=== PATIENT | female | born 1965 | race Caucasian/White ===

== ENCOUNTER 2020-06-05 08:34 | Outpatient (REF) | payer OTHER, SELFPAY ==
[2020-06-07 00:27] LABS: C. trachomatis RNA TMA NOT DETECTED (NOT DETECTED); N. gonorrhoeae RNA TMA NOT DETECTED (NOT DETECTED)
== END 2020-06-05 08:35 | disposition home or self-care (01) ==
LOC: HO.LAB 08:34
PROVIDERS: PCP Internal Medicine; Visit Provider Obstetrics & Gynecology
DX: Z01.419 Encounter for gynecological examination (general) (routine) without abnormal findings (principal); R10.2 Pelvic and perineal pain
CPT/HCPCS: 36415; 81003; 81025; 87491; 87591

== ENCOUNTER 2020-06-18 11:27 | Outpatient (REF) | payer OTHER, SELFPAY ==
--- NOTE | 2020-06-18 11:31 | US_ITS ---
EXAMINATION: PELVIC ULTRASOUND CLINICAL INFORMATION: Pain COMPARISON: Previous CT of the abdomen and pelvis August 2008 and pelvic ultrasound most recent August 2018 TECHNIQUE: Transabdominal and transvaginal pelvic ultrasound. Transvaginal exam was performed for better visualization of the uterus and ovaries. FINDINGS: The uterus is anteverted and measures 9.6 x 4.7 x 5.4 cm in dimension. There is a 1.7 x 2.1 x 1.7 cm hypoechoic area in the fundus of the uterus near the endometrium suggestive of a fibroid. This was not appreciated on previous exam. No other focal lesion is seen. Endometrial thickness is normal measuring 0.9 cm. There are small nabothian cysts in the cervix. The right ovary is slightly enlarged and measures 3.9 x 2.6 x 3 cm, volume 16 mL. There is a 3.2 x 1.9 x 2.3 cm simple right ovarian cyst. The left ovary is normal-appearing and measures 3 x 2.4 x 1.5 cm. There is a small amount of fluid in the pelvis. US/US transvaginal IMPRESSION: Question 1.7 x 2.1 x 1.7 cm fundal uterine fibroid near the endometrium. 3.2 x 1.9 x 2.3 cm left ovarian cyst.
--- NOTE | 2020-06-18 11:31 | US_ITS ---
EXAMINATION: PELVIC ULTRASOUND CLINICAL INFORMATION: Pain COMPARISON: Previous CT of the abdomen and pelvis August 2008 and pelvic ultrasound most recent August 2018 TECHNIQUE: Transabdominal and transvaginal pelvic ultrasound. Transvaginal exam was performed for better visualization of the uterus and ovaries. FINDINGS: The uterus is anteverted and measures 9.6 x 4.7 x 5.4 cm in dimension. There is a 1.7 x 2.1 x 1.7 cm hypoechoic area in the fundus of the uterus near the endometrium suggestive of a fibroid. This was not appreciated on previous exam. No other focal lesion is seen. Endometrial thickness is normal measuring 0.9 cm. There are small nabothian cysts in the cervix. The right ovary is slightly enlarged and measures 3.9 x 2.6 x 3 cm, volume 16 mL. There is a 3.2 x 1.9 x 2.3 cm simple right ovarian cyst. The left ovary is normal-appearing and measures 3 x 2.4 x 1.5 cm. There is a small amount of fluid in the pelvis. US/US pelvic complete IMPRESSION: Question 1.7 x 2.1 x 1.7 cm fundal uterine fibroid near the endometrium. 3.2 x 1.9 x 2.3 cm left ovarian cyst.
== END 2020-06-18 11:28 | disposition home or self-care (01) ==
LOC: HO.US 11:27
PROVIDERS: PCP Internal Medicine; Visit Provider Obstetrics & Gynecology
DX: R10.2 Pelvic and perineal pain (principal)
CPT/HCPCS: 76830; 76856

== ENCOUNTER → 2020-07-03 10:27 | Outpatient (BNVA) | payer OTHER, SELFPAY | PROVIDERS: Visit Provider Obstetrics & Gynecology ==

== ENCOUNTER 2020-10-16 12:48 | Outpatient (REF) | payer OTHER, SELFPAY ==
--- NOTE | ~2020-10-16 | MM_ITS ---
EXAMINATION: MM SCREENING DIGITAL BREAST TOMOSYNTHESIS, BILATERAL CLINICAL INFORMATION: Screening. Asymptomatic. The lifetime risk of breast cancer based on the Tyrer-Cuzick Model is 12%. COMPARISON: Mammography: 07/15/2018, 07/10/2017, 06/16/2015 TECHNIQUE: Digital breast tomosynthesis is performed in both the craniocaudal and mediolateral oblique views along with computer-aided detection (CAD). Synthesized 2D images are generated from the tomosynthesis. FINDINGS: There are scattered areas of fibroglandular density (ACR BI-RADS breast composition Category b). Parenchymal pattern is similar to prior studies. There is no developing density or interval mass or architectural abnormality. The axilla and skin contours are unremarkable. There are some fine calcifications posterior central 3:00 right breast, questionably increased. Patient will be recalled for additional imaging. MM/MM tomosynthesis screening BI IMPRESSION: 1. Right: Fine calcifications posterior central right breast. 2. Left: No mammographic evidence of malignancy. ASSESSMENT: BI-RADS 0: Incomplete - Need Additional Imaging Evaluation RECOMMENDATION: 1. Additional views of the right breast (magnification CC, magnification LM). 2. Radiology department staff will contact the patient for additional imaging. This patient's information was entered into a reminder system with a target due date for their next mammogram.
== END 2020-10-16 12:49 | disposition home or self-care (01) ==
LOC: HO.MAMMO 12:48
PROVIDERS: PCP Internal Medicine; Visit Provider Internal Medicine
DX: Z12.31 Encounter for screening mammogram for malignant neoplasm of breast (principal)
CPT/HCPCS: 77063; 77067

== ENCOUNTER 2020-10-19 09:03 | Outpatient (REF) | payer OTHER, SELFPAY ==
--- NOTE | ~2020-10-19 | MM_ITS ---
EXAMINATION: MM DIAGNOSTIC DIGITAL MAMMOGRAPHY, RIGHT CLINICAL INFORMATION: Recall from screening for question of new loosely grouped calcifications posterior medial right breast. COMPARISON: Mammography: 10/16/2020, 07/15/2018, 07/10/2017, 06/16/2015 TECHNIQUE: Digital mammography is performed in the following views: Magnification CC, magnification LM x2. FINDINGS: There are scattered areas of fibroglandular density (ACR BI-RADS breast composition Category b). Breast tissue composition borders on heterogeneously dense. The additional magnification views show a few random small round calcifications in the breasts without increased or grouped benign round prior exam. No significant changes. Results are discussed with the patient at time of visit. MM/MM added views RT IMPRESSION: Additional view shows no significant changes from prior exams. ASSESSMENT: BI-RADS 2: Benign RECOMMENDATION: Routine annual mammography screening. This patient's information was entered into a reminder system with a target due date for their next mammogram.
== END 2020-10-19 09:04 | disposition home or self-care (01) ==
LOC: HO.MAMMO 09:03
PROVIDERS: Visit Provider Internal Medicine
DX: R92.1 Mammographic calcification found on diagnostic imaging of breast (principal)
CPT/HCPCS: 77065

== ENCOUNTER 2021-01-15 08:38 | Outpatient (REF) | payer OTHER, SELFPAY ==
[2021-01-15 12:01] LABS: Alanine Aminotransferase 17 U/L (0-31); Albumin Level 4.8 g/dL (3.5-5.0); Alkaline Phosphatase 53 U/L (39-117); Anion Gap 14 (12-20); Aspartate Amino Transferase 18 U/L (5-31); Bilirubin Total 1.1 mg/dL (0.0-1.0); Blood Urea Nitrogen 13 mg/dL (9-16); Calcium 9.6 mg/dL (8.4-10.2); Carbon Dioxide 25 mmol/L (22-29); Chloride 106 mmol/L (96-108); Cholesterol 244 mg/dL; Estimated Glomerular Filt Rate > 60; Glucose Fasting 101 mg/dL (60-99); HDL Cholesterol 35 mg/dL; LDL Cholesterol Calculated 161 mg/dl; Potassium 4.5 mmol/L (3.3-5.1); Sodium 140 mmol/L (135-145); Total Protein 7.8 g/dL (6.5-8.0); Triglycerides 244 mg/dL
[2021-01-15 12:15] LABS: Vitamin D 25-OH Total 19.4 ng/mL (>30)
[2021-01-15 14:28] LABS: Estimated Average Glucose 114 mg/dL; Hemoglobin A1c % 5.6 %
== END 2021-01-15 08:39 | disposition home or self-care (01) ==
LOC: HO.HMGCLDS 08:38
PROVIDERS: PCP Internal Medicine; Visit Provider Internal Medicine
DX: R73.01 Impaired fasting glucose (principal); E78.5 Hyperlipidemia, unspecified; I10 Essential (primary) hypertension; Z78.0 Asymptomatic menopausal state
CPT/HCPCS: 36415; 80053; 80061; 82306; 83036

== ENCOUNTER 2021-06-10 09:58 | Outpatient (REF) | payer OTHER, SELFPAY ==
[2021-06-13 05:51] LABS: HPV mRNA E6/E7 rflx Not Detected (Not Detected)
== END 2021-06-10 09:59 | disposition home or self-care (01) ==
LOC: HO.LAB 09:58
PROVIDERS: PCP Internal Medicine; Visit Provider Obstetrics & Gynecology
DX: Z01.411 Encounter for gynecological examination (general) (routine) with abnormal findings (principal); Z11.51 Encounter for screening for human papillomavirus (HPV); N95.0 Postmenopausal bleeding
CPT/HCPCS: 87624; 88142; 99212

== ENCOUNTER 2021-06-27 14:06 | Outpatient (REF) | payer OTHER, SELFPAY ==
--- NOTE | ~2021-06-27 | US_ITS ---
EXAMINATION: US PELVIS CLINICAL INFORMATION: Postmenopausal bleeding. COMPARISON: Pelvic ultrasound on 06/18/[address] abdomen pelvis 08/21/2008. TECHNIQUE: Ultrasound of the pelvis is performed using both transabdominal and transvaginal transducers along with Doppler. Transvaginal imaging is performed due to inadequate visualization transabdominally. FINDINGS: Uterus: The uterus is anteverted and measures 9.1 x 4.2 x 5.3 cm. The double wall endometrial thickness is 0.5 mm. Trace fluid is present in the endometrial canal. The uterus is smooth in contour and has normal myometrial echogenicity. There is a small submucosal fibroid present at the fundus measuring 2.0 x 1.7 x 1.5 cm not significantly changed in size over the past year when it was measured at 1.7 x 2.1 x 1.7 cm. Adnexa: Both ovaries are visualized. There is normal color flow to the adnexa. There is no ovarian torsion. There is no pelvic ascites or fluid collection. Right ovary measures 1.7 x 1.2 x 2.0 cm for a volume of 2.1 mL which includes a dominant follicle. Previously seen right ovarian cysts appear to have resolved. There is a tubular structure in the right adnexa measuring 1.2 x 0.8 x 3.2 cm which could possibly represent a hydrosalpinx. Alternatively, this could represent one of the previously seen cysts which is collapsed and flattened. Left ovary measures 4.3 x 2.7 x 3.3 cm for a volume of 20.1 mL which includes a 2.8 x 2.0 x 2.7 cm cyst with some peripheral calcifications. US/US pelvic and transvaginal IMPRESSION: 2 cm submucosal fibroid at the fundus of the uterus. Resolved/resolving right ovarian cysts as described above.
== END 2021-06-27 14:07 | disposition home or self-care (01) ==
LOC: HO.US 14:06
PROVIDERS: PCP Internal Medicine; Visit Provider Obstetrics & Gynecology
DX: N95.0 Postmenopausal bleeding (principal)
CPT/HCPCS: 76830; 76856

== ENCOUNTER 2021-07-11 10:14 | Outpatient (REF) | payer OTHER, SELFPAY | END 2021-07-11 10:15 | disposition home or self-care (01) | LOC: HO.LAB 10:14 | PROVIDERS: PCP Internal Medicine; Visit Provider Obstetrics & Gynecology | DX: N95.0 Postmenopausal bleeding (principal); N83.209 Unspecified ovarian cyst, unspecified side; D21.9 Benign neoplasm of connective and other soft tissue, unspecified; I10 Essential (primary) hypertension; E78.5 Hyperlipidemia, unspecified; R73.01 Impaired fasting glucose; Z87.891 Personal history of nicotine dependence; Z98.51 Tubal ligation status; Z90.49 Acquired absence of other specified parts of digestive tract | CPT/HCPCS: 57454; 58100; 88305; 99212 ==

== ENCOUNTER → 2021-07-25 13:01 | Outpatient (BNVA) | payer OTHER, SELFPAY | PROVIDERS: PCP Internal Medicine; Visit Provider Obstetrics & Gynecology | DX: N95.0 Postmenopausal bleeding (principal) | CPT/HCPCS: 99212 ==

== ENCOUNTER 2021-07-31 | Outpatient (REF) | payer OTHER, SELFPAY ==
[2021-07-31 10:37] LABS: Blood Urea Nitrogen 15 mg/dL (9-16); Estimated Glomerular Filt Rate > 60
== END 2021-07-31 00:01 ==
LOC: HO.LAB
PROVIDERS: Visit Provider Obstetrics & Gynecology
DX: D21.9 Benign neoplasm of connective and other soft tissue, unspecified (principal)
CPT/HCPCS: 36415; 82565; 84520

== ENCOUNTER 2021-07-31 10:55 | Outpatient (REF) | payer OTHER, SELFPAY ==
--- NOTE | ~2021-07-31 | MR_ITS ---
EXAMINATION: MRI PELVIS WITH AND WITHOUT CONTRAST CLINICAL INFORMATION: Reason for Exam [id number] - Unspecified ovarian cyst, unspecified side COMPARISON: Pelvic ultrasound 06/27/2021 TECHNIQUE: Multiple routine MRI sequences through the pelvis were obtained before and after the uneventful administration of 10 mL of Gadavist gadolinium-based IV contrast. FINDINGS: UTERUS: Anteverted uterus has a normal configuration and measures 7.8 x 4.0 x 4.6 cm ([id number] x anterior-posterior x transverse). Endometrium is uniform and measures 0.2 cm in thickness. No junctional zone thickening. No focal uterine mass seen. CERVIX: Unremarkable. VAGINA: Unremarkable. OVARIES: The right ovary measures 1.8 x 2.2 x 0.9 cm. A 1.2 cm simple exophytic right ovarian cyst unchanged from prior previously 1.2 cm. The left ovary measures 2.2 x 1.1 x 3.0 cm. Left ovary is unremarkable, with interval resolution of the previously seen 2.8 cm cyst. KIDNEYS: Two normally positioned kidneys are seen. No hydronephrosis. BLADDER: Unremarkable. PELVIC FREE FLUID: No free fluid or ascites. LYMPH NODES: No pathologically enlarged lymph nodes. OSSEOUS STRUCTURES: No acute or suspicious osseous abnormalities. MR/MR pelvis wo/w con IMPRESSION: Right ovary is remarkable for a 1.2 cm exophytic simple cyst. If patient is premenopausal this is consistent with a benign cyst for which no follow-up imaging is recommended. If patient is postmenopausal this is an almost certainly benign cyst for which no follow-up imaging is recommended. Interval resolution of previously seen 2.8 cm left ovarian cyst.
== END 2021-07-31 10:56 | disposition home or self-care (01) ==
LOC: HO.MRI 10:55
PROVIDERS: Visit Provider Obstetrics & Gynecology
DX: N83.209 Unspecified ovarian cyst, unspecified side (principal)
CPT/HCPCS: 72197; A9585

== ENCOUNTER → 2021-08-14 14:58 | Outpatient (BNVA) | payer OTHER, SELFPAY | PROVIDERS: PCP Internal Medicine; Visit Provider Obstetrics & Gynecology | DX: N83.209 Unspecified ovarian cyst, unspecified side (principal) | CPT/HCPCS: 99212 ==

== ENCOUNTER 2021-10-22 12:20 | Outpatient (REF) | payer OTHER, SELFPAY ==
--- NOTE | ~2021-10-22 | MM_ITS ---
EXAMINATION: MM SCREENING DIGITAL BREAST TOMOSYNTHESIS, BILATERAL CLINICAL INFORMATION: Screening. Asymptomatic. The lifetime risk of breast cancer based on the Tyrer-Cuzick Model is 12.3%. COMPARISON: Mammography: October 19, 2020 and studies dating back to July 26, 2011 TECHNIQUE: Digital breast tomosynthesis is performed in both the craniocaudal and mediolateral oblique views along with computer-aided detection (CAD). Synthesized 2D images are generated from the tomosynthesis. FINDINGS: The breasts are extremely dense, which lowers the sensitivity of mammography (ACR BI-RADS breast composition Category d). There are no significant masses, abnormal calcifications, or other abnormalities. MM/MM tomosynthesis screening BI IMPRESSION: There are no significant changes from prior study. ASSESSMENT: BI-RADS 1: Negative RECOMMENDATION: Routine annual mammography screening. This patient's information was entered into a reminder system with a target due date for their next mammogram.
== END 2021-10-22 12:21 | disposition home or self-care (01) ==
LOC: HO.MAMMO 12:20
PROVIDERS: PCP Internal Medicine; Visit Provider Internal Medicine
DX: Z12.31 Encounter for screening mammogram for malignant neoplasm of breast (principal)
CPT/HCPCS: 77063; 77067

== ENCOUNTER 2022-04-24 09:43 | Outpatient (REF) | payer OTHER, SELFPAY ==
--- NOTE | ~2022-04-24 | XR_ITS ---
EXAMINATION: XR CERVICAL SPINE CLINICAL INFORMATION: Cervicalgia COMPARISON: None TECHNIQUE: 5 views of the cervical spine were obtained. FINDINGS: The vertebral alignment is normal. No intrinsic bony abnormality. The disc heights and neural foramina are well maintained. The posterior elements are intact. Tiny endplate osteophytes at C6-C7. The atlantoaxial joint is intact. The dens is intact. No fracture or subluxation. The surrounding prevertebral soft tissues are unremarkable. The lung apices are clear. XR/XR cervical spine 5V IMPRESSION: Minimal degenerative change at the C6-C7 level.
== END 2022-04-24 09:44 | disposition home or self-care (01) ==
LOC: HO.HMGCX 09:43
PROVIDERS: PCP Internal Medicine; Visit Provider Internal Medicine
DX: M54.2 Cervicalgia (principal); R20.0 Anesthesia of skin; R20.2 Paresthesia of skin
CPT/HCPCS: 72050

== ENCOUNTER 2022-07-01 09:07 | Outpatient (REF) | payer OTHER, SELFPAY ==
[2022-07-01 11:58] LABS: Alanine Aminotransferase 18 U/L (0-31); Anion Gap 13 (12-20); Aspartate Amino Transferase 15 U/L (5-31); Blood Urea Nitrogen 15 mg/dL (9-16); Calcium 9.6 mg/dL (8.4-10.2); Carbon Dioxide 26 mmol/L (22-29); Chloride 106 mmol/L (96-108); Cholesterol 245 mg/dL; Estimated Glomerular Filt Rate > 60; Glucose Fasting 126 mg/dL (60-99); HDL Cholesterol 37 mg/dL; LDL Cholesterol Calculated 176 mg/dl; Potassium 4.2 mmol/L (3.3-5.1); Sodium 141 mmol/L (135-145); Triglycerides 160 mg/dL
[2022-07-01 12:16] LABS: Vitamin D 25-OH Total 20.2 ng/mL (>30)
== END 2022-07-01 09:08 | disposition home or self-care (01) ==
LOC: HO.HMGCLDS 09:07
PROVIDERS: PCP Internal Medicine; Visit Provider Internal Medicine
DX: I10 Essential (primary) hypertension (principal); R73.01 Impaired fasting glucose; E78.5 Hyperlipidemia, unspecified; R20.2 Paresthesia of skin; R20.0 Anesthesia of skin; M54.2 Cervicalgia
CPT/HCPCS: 36415; 80048; 80061; 82306; 84450; 84460

== ENCOUNTER 2022-10-15 06:29 | Outpatient (REF) | payer OTHER, SELFPAY ==
[2022-10-15 12:04] LABS: Alanine Aminotransferase 17 U/L (0-31); Anion Gap 14 (12-20); Aspartate Amino Transferase 18 U/L (5-31); Blood Urea Nitrogen 20 mg/dL (9-16); Calcium 10.1 mg/dL (8.4-10.2); Carbon Dioxide 26 mmol/L (22-29); Chloride 105 mmol/L (96-108); Cholesterol 221 mg/dL; Estimated Glomerular Filt Rate 56; Glucose Fasting 115 mg/dL (60-99); HDL Cholesterol 31 mg/dL; LDL Cholesterol Calculated 131 mg/dl; Potassium 4.1 mmol/L (3.3-5.1); Sodium 141 mmol/L (135-145); Triglycerides 299 mg/dL; Vitamin D 25-OH Total 42.9 ng/mL (>30)
[2022-10-15 12:05] LABS: Estimated Average Glucose 120 mg/dL; Hemoglobin A1c % 5.8 %
== END 2022-10-15 06:30 | disposition home or self-care (01) ==
LOC: HO.HMGCLDS 06:29
PROVIDERS: PCP Internal Medicine; Visit Provider Internal Medicine
DX: E78.5 Hyperlipidemia, unspecified (principal); I10 Essential (primary) hypertension; R73.01 Impaired fasting glucose
CPT/HCPCS: 36415; 80048; 80061; 82306; 83036; 84450; 84460

== ENCOUNTER 2022-10-16 13:13 | Outpatient (AMB) | payer OTHER, SELFPAY ==
--- NOTE | 2022-10-16 14:23 | A.OFFPC_ITS ---
<Statement entered by Bridgette Larson MD - 06/19/25 00:12> This note has been administratively?closed. Vital Signs 10/16/22 14:39 Height 5 ft 4 in Weight 180 lb BMI 30.9 BP 118/88 Blood Pressure Location Rt brachial Position Sitting Pulse 72 Pulse Source Pulse Oximeter Pulse Oximetry (%) 98 Oxygen Delivery Method Room Air Intake Visit Reasons: 6 months F/U lipids, htn and depression/anxiety Intake Note: Pt is here today for her 6 mo. f/u lipids, HTN, depression/anxiety Allergies No Known Allergies Allergy (Verified 03/23/25 16:26) Medication List - Last Reconciled 10/16/22 by Bridgette Larson MD amlodipine 2.5 mg PO DAILY buspirone 5 mg PO BID cholecalciferol (vitamin D3) 50 mcg PO DAILY lisinopril-hydrochlorothiazide 10-12.5 mg 1 tab PO DAILY Tobacco use date assessed: 10/16/22 HPI 6 months F/U lipids, htn and depression/anxiety HPI Details 57-year-old lady here today for follow-u p on her lipids, hypertension depression anxiety. Has been compliant with taking her medications. Blood pressure today is within normal limits. Fasting glucose mildly elevated but 20 hemoglobin A1c within normal limits at 5.8%, liver enzymes, lipids showed elevated triglycerides with mildly elevated LDL cholesterol and normal vitamin-D level. Laboratory Tests 10/15/22 10/15/22 06:49 06:49 Sodium 141 Potassium 4.1 Chloride 105 Carbon Dioxide 26 Anion Gap 14 BUN 20 H Creatinine 1.02 Estimated GFR 56 Fasting Glucose 115 H Estimat Average Gl ucose 120 Hemoglobin A1c % 5.8 Calcium 10.1 AST 18 ALT 17 Triglycerides 299 Cholesterol 221 LDL Cholesterol, C alc 131 HDL Cholesterol 31 25-OH Vitamin D To nazario 42.9 PFSH Medical History (Updated 04/01/25 @ 23:51 by Bridgette Larson MD) Gout Mixed dyslipidemia Postmenopausal bleeding History of COVID-19 Esophagitis determined by endoscopy Essential hypertension Anxiety and depression Numbness and tingling in left hand Cervicalgia COVID-19 virus infection Hypertension, uncontrolled Impaired fasting glucose Dyslipidemia Surgical History Hx of colonoscopy S/P endometrial ablation Hx of cholecystectomy History of tubal ligation Family History Father Diabetes mellitus HTN (hypertension) Cerebrovascular disease Stroke Mother HTN (hypertension) Depression Mental health disorder Sister Mental health disorder Social History Household Members: Significant Other and Children Housing: House Alcohol intake: current Alcohol intake frequency: a few times a week Comment: socially Patient Tobacco Use Status: Former Tobacco user Years Smoked: 3 yrs e-Cigarette/Vaping Use: Never Used Second Hand Smoke Exposure: No service: No Current occupational status: employed 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 1. Little interest or pleasure in doing things: nearly every day 2. Feeling down, depressed, or hopeless: nearly every day 4. Feeling tired or having little energy: more than half the days 5. Poor appetite or overeating: several days 6. Feeling bad about yourself - or that you are a failure or have let yourself or your family down: nearly every day 7. Trouble concentrating on things, such as reading the newspaper or watching television: nearly every day 8. Moving or speaking so slowly that other people could have noticed. Or the opposite - being so fidgety or restless that you have been moving around a lot more than usual: more than half the days 9. Thoughts that you would be better off or of hurting yourself in some way: not at all Depression Screening Interpretation: Positive Source: Developed by Drs. Kei Jackson, Lizette Read, Michael Grande and colleagues, with an educational aura from [employer]. Thrive Questionnaire Date Thrive assessed: 10/16/22 AUDIT C Alcohol Use Questionnaire (AUDIT-C) 1. How often do you have a drink containing alcohol?: Monthly or less 2. How many drinks containing alcohol do you have on a typical day when you are drinking?: 1 or 2 3. How often do you have six or more drinks on one occasion?: Never Total Score: 1 GRZEGORZ-7 AMB Questionnaire GRZEGORZ-7 Date GRZEGORZ - 7 assessed: 10/16/22 Feeling nervous, anxious, or on edge: 3 = Nearly every day Not being able to stop or control worryin = Nearly every day Worrying too much about different things: 3 = Nearly every day Trouble relaxin = Nearly every day Being so restless that it is hard to sit still: 2 = More than half the days Becoming easily annoyed or irritable: 1 = Several days Feeling afraid as if something awful might happen: 2 = More than half the days Total GRZEGORZ-7 score (0-4 normal; 5-9 mild; 10-14 moderate; 15-21 severe): 17 Source: Developed by Drs. Kei Jackson, Lizette Read, Michael Grande and colleagues, with an educational aura from [employer]. Physical exam (Primary Care) Vital Signs: Last Vital Signs Pulse 72 10/16/22 14:39 BP 118/88 10/16/22 14:39 Pulse Ox 98 10/16/22 14:39 Oxygen Delivery Method Room Air 10/16/22 14:39 BMI result Body Mass Index 30.9 Tobacco/Smoking Status: Tobacco use Status Tobacco use date assessed 10/16/22 10/16/22 14:38 Patient Tobacco Use Status Former Tobacco user 10/16/22 14:24 e-Cigarette/Vaping Use Never Used 10/16/22 14:24 Depression Screening Interpretation: Positive Thrive Assessment: Date of Thrive Assessment Date Thrive assessed 10/16/22 10/16/22 14:38 Coding Level of Care Code Admin Sign Off/No Billing Diagnoses Essential hypertension I10 Anxiety and depression F41.9; F32.A Impaired fasting glucose R73.01 Dyslipidemia E78.5
[2022-10-16 14:39] VITALS: BP 118/88; PULSE 72; O2SAT 98; BMI 30.9
== END 2022-10-16 15:32 | disposition home or self-care (01) ==
PROVIDERS: PCP Internal Medicine; Visit Provider Internal Medicine
DX: I10 Essential (primary) hypertension (principal); F41.9 Anxiety disorder, unspecified; F32.A Depression, unspecified; R73.01 Impaired fasting glucose; E78.5 Hyperlipidemia, unspecified
CPT/HCPCS: 99499

== ENCOUNTER 2022-10-24 10:54 | Outpatient (REF) | payer OTHER, SELFPAY ==
--- NOTE | ~2022-10-24 | MM_ITS ---
EXAMINATION: MM SCREENING DIGITAL BREAST TOMOSYNTHESIS, BILATERAL CLINICAL INFORMATION: Screening. Asymptomatic. The lifetime risk of breast cancer based on the Tyrer-Cuzick Model is 13%. COMPARISON: Mammography: 10/22/2021, 10/19/2020, 11/04/2020, 07/15/2018 TECHNIQUE: Digital breast tomosynthesis is performed in both the craniocaudal and mediolateral oblique views along with computer-aided detection (CAD). Synthesized 2D images are generated from the tomosynthesis. FINDINGS: The breasts are heterogeneously dense, which may obscure small masses (ACR BI-RADS breast composition Category c). There is no developing density or architectural abnormality or significant mass. Scattered bilateral punctate calcifications are again noted. No abnormal calcifications. The axilla and skin contours are unremarkable. No significant changes from prior studies. MM/MM tomosynthesis screening BI IMPRESSION: No mammographic evidence of malignancy. ASSESSMENT: BI-RADS 2: Benign RECOMMENDATION: Routine annual mammography screening. This patient's information was entered into a reminder system with a target due date for their next mammogram.
== END 2022-10-24 10:55 | disposition home or self-care (01) ==
LOC: HO.MAMMO 10:54
PROVIDERS: PCP Internal Medicine; Visit Provider Internal Medicine
DX: Z12.31 Encounter for screening mammogram for malignant neoplasm of breast (principal)
CPT/HCPCS: 77063; 77067

== ENCOUNTER 2022-11-07 13:00 | Outpatient (RCR) | payer MEDICAID, OTHER, SELFPAY ==
--- NOTE | 2022-10-08 12:39 | MHC.PT.EP ---
[facility] [place] Office [place] Office [place] Office [address] Norma Gabriel [address] [phone] F: [phone] F: [phone] F: [phone] F: [phone] Physical Therapy Plan of Care Date of Evaluation: Date of Surgery: Diagnosis: This is a 57 yo female presenting to skilled PT with a script for pain in L shoulder. Assessment: This is a 57 yo female presenting to skilled PT with a script for pain in L shoulder. Patient has been having ongoing shoulder pain for the past 3 few months progressively getting worse, insidious onset. She went to urgent care on 09/12 with a clicking sensation in the shoulder joint with, restriction of mobility due to pain and some numbness and tingling to the 5th digit of her hand when she wakes in the AM (was dx with arthritis). Today at eval patient reporting discomfort at the anterior shoulder worse with movement, sleeping (feels weak and like it will dislocate), numbness into lower arm and into 5th digit. She states that she has always had L upper trap pain as well. Pain is constant, worse some days and better others. Assessment reveals pain that ranges up to a 7/10. Patient demos decreased cervical and shoulder ROM, strength of shoulder and scapular muscles, they are TTP at UT and anterior shoulder with decreased sensation in lower arm, s/s consistent with cervical derangement vs shoulder arthritis as in script. Based on functional limitations, impaired QOL and pain tolerance patient is a good candidate for skilled PT 2x/wk for 4wks. Frequency and Duration: The patient will be seen 2x/wk for 4wks Short Term Goals: I in HEP Report centralized symptoms for at least 2 weeks Demo good understanding of cervical and shoulder neutral posture without cues from PT in 2 weeks Assisted Goals: Demo WFL shoulder and cervical AROM in 4wks Demo at least 1 grade improvement with shoulder MMT in 4wks Improve SPADI by at least 25% in 4wks Report 75% improvement in overall QOL In 4wks ------- Treatment Plan: Modalities to reduce pain, spasms and effusion. Manual therapy to restore motion and function. Therapeutic exercise to improve strength and flexibility. Neuromuscular re-education for posture and balance. Therapeutic activities to return to functional activities of daily living. Electronically signed by: Sabrina Hernández PT Please sign and return to therapist. Thank you for your referral.
--- NOTE | 2022-11-19 14:12 | MHC.PT.DC ---
[facility] [place] Office [place] Office [place] Office [address] Norma Gabriel [address] [phone] F: [phone] F: [phone] F: [phone] F: [phone] Physical Therapy Discharge Report Diagnosis: This is a 57 yo female presenting to skilled PT with a script for pain in L shoulder. Date of Surgery: Date of Evaluation: 10/08/22 Date of Discharge: 11/19/22 Treatments to Date: 8 Cancellations to Date: 0 No Shows to Date: 0 Discharge Status: Achieved Goals Improved Function Independent with HEP Visit Non-compliance Discharge Summary: Patient came to 8 visits of PT and then no showed to the last 3 scheduled appointments. She was improving in terms of ROM, strength and pain. She was also more aware of her posture and the exercises that helped to centralize her symptoms. Due to visit non-compliance however patient was DC'd to HEP. Electronically signed by: Sabrina Hernández, PT Please sign and return to therapist. Thank you for your referral.
== END 2022-11-19 14:12 | disposition home or self-care (01) ==
LOC: HO.PTCHIC 13:00
PROVIDERS: PCP Internal Medicine; Visit Provider Emergency Medicine
DX: M25.512 Pain in left shoulder (principal)
CPT/HCPCS: 97012; 97110; 97140; 97162

== ENCOUNTER 2022-12-16 09:15 | Outpatient (AMB) | payer OTHER, SELFPAY ==
--- NOTE | 2022-12-16 09:17 | MHC.OFFVIS ---
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 No complaints. Last Pap/HPV was negative in 06/08 Last Mammogram was BI-RADS 2 in 11/04 Last Colonoscopy was in 03/05, the recommendation was to repeat in 10 years [facility] Medical History Anxiety and depression Cervicalgia COVID-19 virus infection Dyslipidemia Essential hypertension Hypertension, uncontrolled Impaired fasting glucose Left shoulder pain Numbness and tingling in left hand Surgical History History of tubal ligation Hx of cholecystectomy S/P endometrial ablation Family History Father Diabetes mellitus HTN (hypertension) Cerebrovascular disease Stroke Mother HTN (hypertension) Depression Mental health disorder Sister Mental health disorder Social History Household Members: Significant Other and Children Housing: House Alcohol intake: current Alcohol intake frequency: a few times a week Patient Tobacco Use Status: Former Tobacco user Years Smoked: 3 yrs e-Cigarette/Vaping Use: Never Used Second Hand Smoke Exposure: No service: No Current occupational status: employed 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 Sexually active: Yes Sexual orientation: Straight/Heterosexual Gender identity: Female Cognitive needs: No Hearing needs: No Vision needs: Yes Female Reproductive History Menstrual Age of Menarche: 13 Menopause type: natural Total pregnancies: 5 Full term: 3 Number of Living Children: 3 Ab spontaneous: 2 Date of last pap smear: 06/11/21 Date of Mammogram: 10/24/22 Review of Systems Const All systems reviewed & are unremarkable except as noted in HPI and below Card Reports as per HPI Resp Reports as per HPI GI Reports as per HPI and Reports no additional complaints Reports as per HPI Physical Exam Vital Signs: BMI result Body Mass Index 30.0 Const General: cooperative, healthy appearing and comfortable Chest Chest palpation & inspection: normal inspection of the chest and normal palpation of entire chest wall Breast/axilla inspection: normal inspection of the breasts and normal inspection of the axillae Breast/axilla palpation: normal palpation of the breasts, normal palpation of the axillae and no axillary lymphadenopathy Resp Effort & Inspection: normal respiratory effort Auscultation: clear to auscultation bilaterally Percussion: percussion normal Cardio Palpation: normal PMI Rate: regular rate Rhythm: regular rhythm Heart sounds: no murmurs and no rubs Peripheral pulses: Peripheral pulses 2+ throughout GI Inspection: Yes normal to inspection Palpation (GI): Soft to palpation, nontender, no guarding, not rigid and No hepatosplenomegaly present Percussion: Yes normal to percussion Auscultation: normal bowel sounds Rectal Exam - Female: deferred General: Yes bladder normal to palpation External Female Exam: No lesion Speculum Exam - Vagina: normal appearance of the vagina, normal palpation, normal vaginal discharge and not erythematous Speculum Exam - Cervix: normal appearance of the cervix and normal palpation Bimanual exam- vagina & uterus: normal bimanual exam, normal palpation, uterine size normal, bladder normal to palpation, consistency normal and normal palpation Bimanual Exam- Adnexa, other: normal adnexae, no masses and no tenderness Assessment & Plan Assessment & Plan (1) Well woman exam: Code(s): Z01.419 - Encounter for gynecological examination (general) (routine) without abnormal findings Plan: Co testing not indicated this year. Counseled the patient about the recommended dietary allowance of 1200 mg of Calcium & 600 IU of vitamin D. Instructions given to the patient to schedule her next screen Mammogram in 11/08 , the patient is up-to-date with her screening colonoscopy . The patient was instructed to perform monthly self-breast exams and schedule annual exam in a year; all questions answered and the patient verbalized understanding. Coding Level of Care Code Est Pt Prev Care 40-64y(80853) Diagnoses Well woman exam Z01.419
[2022-12-16 09:21] VITALS: BP 122/80
== END 2022-12-16 09:41 | disposition home or self-care (01) ==
LOC: HO.HWS 09:15
PROVIDERS: PCP Internal Medicine; Visit Provider Obstetrics & Gynecology
DX: Z01.419 Encounter for gynecological examination (general) (routine) without abnormal findings (principal)
CPT/HCPCS: 99396

== ENCOUNTER → 2022-12-16 09:15 | Outpatient (BNVA) | payer OTHER, SELFPAY | PROVIDERS: PCP Internal Medicine; Visit Provider Obstetrics & Gynecology ==

== ENCOUNTER 2023-01-20 08:30 | Outpatient (REF) | payer OTHER, SELFPAY ==
[2023-01-20 12:27] LABS: Alanine Aminotransferase 13 U/L (0-31); Anion Gap 12 (12-20); Aspartate Amino Transferase 14 U/L (5-31); Blood Urea Nitrogen 18 mg/dL (9-16); Calcium 10.3 mg/dL (8.4-10.2); Carbon Dioxide 26 mmol/L (22-29); Chloride 105 mmol/L (96-108); Cholesterol 228 mg/dL (<200); Estimated Glomerular Filt Rate 58; Glucose Fasting 112 mg/dL (60-99); HDL Cholesterol 37 mg/dL (>40); LDL Cholesterol Calculated 159 mg/dL (<100); Potassium 3.9 mmol/L (3.3-5.1); Sodium 139 mmol/L (135-145); Triglycerides 163 mg/dL (<150)
[2023-01-20 12:32] LABS: Estimated Average Glucose 120 mg/dL; Hemoglobin A1c % 5.8 % (<6.0)
== END 2023-01-20 08:31 | disposition home or self-care (01) ==
LOC: HO.HMGCLDS 08:30
PROVIDERS: PCP Internal Medicine; Visit Provider Internal Medicine
DX: E78.5 Hyperlipidemia, unspecified (principal); F32.A Depression, unspecified; F41.9 Anxiety disorder, unspecified; R73.01 Impaired fasting glucose; I10 Essential (primary) hypertension
CPT/HCPCS: 36415; 80048; 80061; 83036; 84450; 84460

== ENCOUNTER 2023-01-21 10:39 | Outpatient (AMB) | payer OTHER, SELFPAY ==
[2023-01-21 10:40] VITALS: BP 132/92; PULSE 64; O2SAT 99; BMI 29.5
--- NOTE | 2023-01-21 10:40 | MHC.PC.OV ---
Vital Signs 01/21/23 10:40 Height 5 ft 4 in Weight 172 lb BMI 29.5 BP 132/92 H Blood Pressure Location Lt brachial Position Sitting Pulse 64 Pulse Source Pulse Oximeter Pulse Oximetry (%) 99 Oxygen Delivery Method Room Air Intake Visit Reasons: 3m follow up depression/anxiety Intake Note: Pt is here today for her 3 mo. f/u depression/anxiety Allergies No Known Allergies Allergy (Verified 02/16/23 03:09) Medication List - Last Reconciled 01/21/23 by Bridgette Larson MD amlodipine 2.5 mg PO DAILY buspirone 7.5 mg PO TID cholecalciferol (vitamin D3) 50 mcg PO DAILY lisinopril-hydrochlorothiazide 20-12.5 mg 1 tab PO DAILY Tobacco use date assessed: 01/21/23 Dental Screening Dental Screen Date: 01/21/23 Did you have a dental visit in the last 12 months?: No Was dental information given to patient?: Patient has dentist HPI 3m follow up depression/anxiety HPI Details 57-year-old lady here today for follow-up on her anxiety/ depression, currently on buspirone for 7.5 mg taken 1 tablet 3 times a day. Patient states that she has been feeling better, with anxiety better controlled on present medication. Denies having had any adverse effects from medication . She is also here today for follow-up on her hypertension, dyslipidemia and prediabetes. Has been compliant with taking her medications and tries to follow recommended diet but admits to not getting any regular exercise. [facility] Medical History Left shoulder pain Essential hypertension Anxiety and depression Numbness and tingling in left hand Cervicalgia COVID-19 virus infection Hypertension, uncontrolled Impaired fasting glucose Dyslipidemia Surgical History S/P endometrial ablation Hx of cholecystectomy History of tubal ligation Family History Father Diabetes mellitus HTN (hypertension) Cerebrovascular disease Stroke Mother HTN (hypertension) Depression Mental health disorder Sister Mental health disorder Social History Household Members: Significant Other and Children Housing: House Alcohol intake: current Alcohol intake frequency: a few times a week Patient Tobacco Use Status: Former Tobacco user Years Smoked: 3 yrs e-Cigarette/Vaping Use: Never Used Second Hand Smoke Exposure: No service: No Current occupational status: employed 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 1. Little interest or pleasure in doing things: several days 2. Feeling down, depressed, or hopeless: several days 3. Trouble falling or staying asleep, or sleeping too much: several days 4. Feeling tired or having little energy: several days 5. Poor appetite or overeating: not at all 6. Feeling bad about yourself - or that you are a failure or have let yourself or your family down: several days 7. Trouble concentrating on things, such as reading the newspaper or watching television: several days 8. Moving or speaking so slowly that other people could have noticed. Or the opposite - being so fidgety or restless that you have been moving around a lot more than usual: not at all 9. Thoughts that you would be better off or of hurting yourself in some way: not at all Total score: 6 Depression Screening Interpretation: Positive Depression Screening Follow-up: Existing condition and In treatment 51419 - PHQ-9 Billing: Yes Source: Developed by Drs. Kei Jackson, Lizette Read, Michael Grande and colleagues, with an educational aura from [employer]. Thrive Questionnaire Date Thrive assessed: 10/16/22 I am a: Patient What is your living situation today?: I choose not to answer this question Within the past 12 months, did the food you bought not last and you didn't have the money to get more?: I choose not to answer this question Within the past 12 months, did you worry whether your food would run out before you got money to buy more?: I choose not to answer this question GRZEGORZ-7 AMB Questionnaire GRZEGORZ-7 Date GRZEGORZ - 7 assessed: 01/21/23 Feeling nervous, anxious, or on edge: 1 = Several days Not being able to stop or control worryin = Several days Worrying too much about different things: 1 = Several days Trouble relaxin = Several days Being so restless that it is hard to sit still: 0 = Not at all Becoming easily annoyed or irritable: 1 = Several days Feeling afraid as if something awful might happen: 0 = Not at all Total GRZEGORZ-7 score (0-4 normal; 5-9 mild; 10-14 moderate; 15-21 severe): 5 Source: Developed by Drs. Kei Jackson, Lizette Read, Michael Grande and colleagues, with an educational aura from [employer]. GRZEGORZ-7 Assessment Billing GRZEGORZ-7 Assessment Tool: GRZEGORZ-7 Assessment 87344 Review of Systems Const Reports no additional complaints ENT Reports no additional complaints and Reports Normal hearing present Card Denies chest pain, Denies diaphoresis, Denies rapid heart rate, Denies irregular heart rhythm, Denies lightheadedness and Denies dyspnea Resp Denies chest congestion, Denies cough, Denies dyspnea and Denies wheezing GI Reports no additional complaints Reports no additional complaints Musc Reports as per HPI Neuro Reports no additional complaints, Reports Normal hearing present and Denies Sensory deficit (Neuro) Psych Reports as per HPI Aller/Immun Denies wheezing Physical exam (Primary Care) Vital Signs: Last Vital Signs Pulse 64 01/21/23 10:40 BP 132/92 H 01/21/23 10:40 Pulse Ox 99 01/21/23 10:40 Oxygen Delivery Method Room Air 01/21/23 10:40 BMI result Body Mass Index 29.5 Tobacco/Smoking Status: Tobacco use Status Tobacco use date assessed 01/21/23 01/21/23 10:43 Patient Tobacco Use Status Former Tobacco user 01/21/23 10:43 e-Cigarette/Vaping Use Never Used 01/21/23 10:43 PHQ-9: PHQ-9 Score PHQ-9: Total score 6 01/21/23 10:52 Depression Screening Interpretation: Positive Depression Screening Follow-up: Existing condition and In treatment Thrive Assessment: Date of Thrive Assessment Date Thrive assessed 10/16/22 01/21/23 10:43 Const General: cooperative, no acute distress and alert Nutritional Appearance: overweight Orientation/consciousness: patient oriented x3 Limitations: No altered mental status HENMT Head: Yes normal to inspection, Yes normocephalic and Yes atraumatic Ears: hearing grossly normal bilaterally, external ears normal, TM's normal bilaterally and EAC's normal General nose exam: Normal external nose present, Normal nasal mucous membranes and turbinates present and No nasal discharge present Face and sinus: Yes normal facial exam and Yes face symmetric Mouth: Normal oral and palatal mucosa present, oropharynx normal and moist mucous membranes Eyes General: appearance normal, both eyes and all related structures Sclerae: sclerae normal Pupils: Equal, round and reactive pupils present EOM: EOMs intact bilaterally Neck Neck: Yes full ROM and Yes no lymphadenopathy Thyroid: Thyroid normal Carotids: normal carotid upstroke Lymphatic: no lymphadenopathy noted Resp Effort & Inspection: normal respiratory effort and able to speak in complete sentences Auscultation: clear to auscultation bilaterally Cardio Rate: regular rate Rhythm: regular rhythm Heart sounds: S1 normal heart sound present and S2 normal heart sound present GI Inspection: Yes normal to inspection Palpation (GI): Soft to palpation Auscultation: normal bowel sounds Neuro General: patient oriented x3, gait normal, moves all extremities, no focal motor deficits and CN's II-XI intact bilaterally Cranial nerves: Yes Equal, round and reactive pupils present and Yes Normal hearing present Cognition (Neuro): normal cognition Gait exam (Neuro): Normal gait present Motor exam (neuro): 5/5 motor strength present throughout Sensory Exam: No Sensory deficit (Neuro) Extrem General: Yes normal to inspection, Yes full ROM, Yes no pedal edema and Yes normal gait Psych Appearance: grossly normal and well kempt Mental Status: mental status grossly normal Speech and movement: Normal speech and movement present Affect: normal affect Thought process: Normal thought process present Assessment and Plan Assessment & Plan (1) Essential hypertension: Code(s): I10 - Essential (primary) hypertension Plan: Blood pressure at goal of less than 130/80. Continue with current medication. Reinforced importance of following a low sodium diet, getting regular exercise, and lowering stress levels. (2) Anxiety and depression: Code(s): F41.9 - Anxiety disorder, unspecified; F32.A - Depression, unspecified Plan: Improved, will continue on current dose of buspirone 7.5 mg 1 tablet taken 3 times a day (3) Dyslipidemia: Code(s): E78.5 - Hyperlipidemia, unspecified Plan: Fasting lipid panel ordered continue with adhering to a low-cholesterol diet and getting regular exercise. (4) Impaired fasting glucose: Code(s): R73.01 - Impaired fasting glucose Plan: Hemoglobin A1c and basic metabolic panel ordered, Your fasting blood sugars elevated were above 100 mg/dL. Impaired glucose metabolism O2 at risk for developing diabetes mellitus type 2, as well as heart attack and stroke later on. Lifestyle changes at just weight loss, healthy eating habits, and regular exercise are important, and can prevent the progression to diabetes Orders: Orders Hemoglobin A1c 05/18/23 I10 - Essential (primary) hypertension, F41.9 - Anxiety disorder, unspecified, F32.A - Depression, unspecified, R73.01 - Impaired fasting glucose, E78.5 - Hyperlipidemia, unspecified Aspartate Amino Transferase 05/18/23 I10 - Essential (primary) hypertension, F41.9 - Anxiety disorder, unspecified, F32.A - Depression, unspecified, R73.01 - Impaired fasting glucose, E78.5 - Hyperlipidemia, unspecified Lipid Panel 05/18/23 I10 - Essential (primary) hypertension, F41.9 - Anxiety disorder, unspecified, F32.A - Depression, unspecified, R73.01 - Impaired fasting glucose, E78.5 - Hyperlipidemia, unspecified Alanine Aminotransferase 05/18/23 I10 - Essential (primary) hypertension, F41.9 - Anxiety disorder, unspecified, F32.A - Depression, unspecified, R73.01 - Impaired fasting glucose, E78.5 - Hyperlipidemia, unspecified Basic Metabolic Panel Fasting 05/18/23 I10 - Essential (primary) hypertension, F41.9 - Anxiety disorder, unspecified, F32.A - Depression, unspecified, R73.01 - Impaired fasting glucose, E78.5 - Hyperlipidemia, unspecified Vitamin D 25-OH Total 05/18/23 I10 - Essential (primary) hypertension, F41.9 - Anxiety disorder, unspecified, F32.A - Depression, unspecified, R73.01 - Impaired fasting glucose, E78.5 - Hyperlipidemia, unspecified Coding Level of Care Code Est Pt Level 4 (52778) Diagnoses Essential hypertension I10 Anxiety and depression F41.9; F32.A Dyslipidemia E78.5 Impaired fasting glucose R73.01 Additional Codes GRZEGORZ-7 Assessment Billing - GRZEGORZ-7 Assessment Tool: GRZEGORZ-7 Assessment 44538 ([id number])
== END 2023-01-21 11:08 | disposition home or self-care (01) ==
PROVIDERS: PCP Internal Medicine; Visit Provider Internal Medicine
DX: I10 Essential (primary) hypertension (principal); F41.9 Anxiety disorder, unspecified; F32.A Depression, unspecified; E78.5 Hyperlipidemia, unspecified; R73.01 Impaired fasting glucose
CPT/HCPCS: 99214

== ENCOUNTER 2023-02-04 14:23 | Outpatient (AMB) | payer OTHER, SELFPAY ==
--- NOTE | 2023-02-04 14:26 | A.OFFVIS_ITS ---
Intake Vital Signs 02/04/23 14:32 Height 5 ft 4 in Weight 171 lb 15.369 oz BMI 29.5 BP 120/76 Intake Visit Reasons: Vaginal bleeding Editor School Photograph Required: No Information Interpreted: non-clinical & clinical Wrecking Car Driver: Wrecking Car Driver Present (Asya Calzada VIJIAngel) Accompanied by: Self / Same As Patient Allergies No Known Allergies Allergy (Verified 02/04/23 14:34) Post menopausal: Yes HPI HPI Comments History of Present Illness Details Presenting with multiple episodes of postmenopausal bleeding for the last few weeks. Last co testing was negative in 06/08 [facility] Medical History Left shoulder pain Essential hypertension Anxiety and depression Numbness and tingling in left hand Cervicalgia COVID-19 virus infection Hypertension, uncontrolled Impaired fasting glucose Dyslipidemia Surgical History S/P endometrial ablation Hx of cholecystectomy History of tubal ligation Family History Father Diabetes mellitus HTN (hypertension) Cerebrovascular disease Stroke Mother HTN (hypertension) Depression Mental health disorder Sister Mental health disorder Social History Household Members: Significant Other and Children Housing: House Alcohol intake: current Alcohol intake frequency: a few times a week Patient Tobacco Use Status: Former Tobacco user Years Smoked: 3 yrs e-Cigarette/Vaping Use: Never Used Second Hand Smoke Exposure: No service: No Current occupational status: employed 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 Sexual orientation: Straight/Heterosexual Gender identity: Female Cognitive needs: No Hearing needs: No Vision needs: Yes Female Reproductive History Menstrual Age of Menarche: 13 Review of Systems Const All systems reviewed & are unremarkable except as noted in HPI and below Physical Exam Vital Signs: Last Vital Signs BP 120/76 02/04/23 14:32 BMI result Body Mass Index 29.5 General: Yes no CVA tenderness External Female Exam: normal external appearance and normal appearance of the urethra Speculum Exam - Vagina: normal appearance of the vagina, normal palpation, no lesions and no masses Speculum Exam - Cervix: normal appearance of the cervix, normal palpation, no lesions, no masses and nontender Bimanual exam- vagina & uterus: normal bimanual exam, normal palpation, uterine size normal, normal palpation, uterine shape normal, No Cervical tenderness present and non-tender Bimanual Exam- Adnexa, other: normal adnexae Back/Spine/Pelvis Back: no CVA tenderness Assessment & Plan Assessment & Plan (1) Postmenopausal bleeding: Code(s): N95.0 - Postmenopausal bleeding Plan: Discussed with the patient the differential diagnosis of post menopausal bleeding with normal pelvic exam including but not limited to, endometrial hyperplasia, cancer, polyps and other causes; co testing done, recommended ultrasound to measure the endometrial stripe; discussed with the patient that if the endometrial thickness is 4 mm or less the negative predictive value of endometrial pathology is 99%, otherwise If endometrial thickness is more than 4 mm will proceed with endometrial sampling versus hysteroscopy D&C polypectomy depending on the ultrasound findings. Instructed the patient to schedule an ultrasound follow-up appointment in 2 weeks. All questions answered, the patient verbalized understanding and agreed with the plan. Orders: Orders US pelvic and transvaginal Today N95.0 - Postmenopausal bleeding Coding Level of Care Code Est Pt Level 3 (10047) Diagnoses Postmenopausal bleeding N95.0
[2023-02-04 14:32] VITALS: BP 120/76; BMI 29.5
== END 2023-02-04 14:50 | disposition home or self-care (01) ==
PROVIDERS: PCP Internal Medicine; Visit Provider Obstetrics & Gynecology
DX: N95.0 Postmenopausal bleeding (principal)
CPT/HCPCS: 99213

== ENCOUNTER → 2023-02-04 14:23 | Outpatient (BNVA) | payer OTHER, SELFPAY | PROVIDERS: PCP Internal Medicine; Visit Provider Obstetrics & Gynecology | DX: N95.0 Postmenopausal bleeding (principal) | CPT/HCPCS: 99212 ==

== ENCOUNTER 2023-02-27 10:48 | Outpatient (REF) | payer OTHER, SELFPAY ==
--- NOTE | ~2023-02-27 | US_ITS ---
EXAMINATION: US PELVIS CLINICAL INFORMATION: Postmenopausal bleeding. Right lower quadrant. Status post endometrial ablation. COMPARISON: MR pelvis 07/31/2021. Ultrasound pelvis 06/27/2021. TECHNIQUE: Ultrasound of the pelvis is performed using both transabdominal and transvaginal transducers along with Doppler. Transvaginal imaging is performed due to inadequate visualization transabdominally. FINDINGS: The uterus is anteverted, retroflexed, heterogeneous and measures 9.9 x 3.7 x 6.4 cm. Previously identified fibroid is not visualized today. Small amount of fluid in the endometrial cavity. Endometrial thickness is 0.6 cm. Right ovary measures 2.9 x 1.5 x 1.1 cm, volume 2.6 mL and is unremarkable. Anechoic tubular structure in the right adnexa measuring 1.1 x 0.9 x 3.2 cm, possibly representing a hydrosalpinx. Pelvic ultrasound of 06/27/2021 demonstrated a 1.2 x 0.8 x 3.2 cm tubular structure in the right adnexa, felt to possibly represent a hydrosalpinx versus collapse and flattened cyst. Left ovary measures 4.5 x 2.2 x 2.6 cm, volume 13.5 mL. 2 left ovarian cysts with peripheral calcifications measuring 1.9 x 1.9 x 2.2 cm and 2.2 x 1.6 x 1.9 cm. Vascular flow is demonstrated. Previous ultrasound demonstrated a single 2.8 x 2.0 x 2.7 cm cyst with peripheral calcification. No significant free fluid. US/US pelvic and transvaginal IMPRESSION: 1. Previously identified fibroid is not visualized today. 2. Small amount of fluid in the endometrial cavity. Endometrial thickness is 0.6 cm. 3. Anechoic tubular structure in the right adnexa similar to 06/27/2021 pelvic ultrasound, possibly representing a hydrosalpinx versus collapsed/flattened cyst as previously noted. 4. Left ovary with 2 cysts with peripheral calcifications and each measuring 2.2 cm. Previous ultrasound demonstrated a single 2.8 cm cyst with peripheral calcification. Gynecologic consultation and correlation with clinical exam and history recommended to determine further management in this patient with postmenopausal bleeding.
== END 2023-02-27 10:49 | disposition home or self-care (01) ==
LOC: HO.US 10:48
PROVIDERS: PCP Internal Medicine; Visit Provider Obstetrics & Gynecology
DX: N95.0 Postmenopausal bleeding (principal)
CPT/HCPCS: 76830; 76856

== ENCOUNTER 2023-05-05 13:13 | Outpatient (AMB) | payer OTHER, SELFPAY ==
--- NOTE | 2023-05-05 13:37 | MHC.OFFVIS ---
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 Pelvic ultrasound showed the following: The uterus is anteverted, retroflexed, heterogeneous and measures 9.9 x 3.7 x 6.4 cm. Previously identified fibroid is not visualized today. Small amount of fluid in the endometrial cavity. Endometrial thickness is 0.6 cm. Right ovary measures 2.9 x 1.5 x 1.1 cm, volume 2.6 mL and is unremarkable. Anechoic tubular structure in the right adnexa measuring 1.1 x 0.9 x 3.2 cm, possibly representing a hydrosalpinx. Pelvic ultrasound of 06/27/2021 demonstrated a 1.2 x 0.8 x 3.2 cm tubular structure in the right adnexa, felt to possibly represent a hydrosalpinx versus collapse and flattened cyst. Left ovary measures 4.5 x 2.2 x 2.6 cm, volume 13.5 mL. 2 left ovarian cysts with peripheral calcifications measuring 1.9 x 1.9 x 2.2 cm and 2.2 x 1.6 x 1.9 cm. Vascular flow is demonstrated. Previous ultrasound demonstrated a single 2.8 x 2.0 x 2.7 cm cyst with peripheral calcification. No significant free fluid. [facility] Medical History Left shoulder pain Essential hypertension Anxiety and depression Numbness and tingling in left hand Cervicalgia COVID-19 virus infection Hypertension, uncontrolled Impaired fasting glucose Dyslipidemia Surgical History S/P endometrial ablation Hx of cholecystectomy History of tubal ligation Family History Father Diabetes mellitus HTN (hypertension) Cerebrovascular disease Stroke Mother HTN (hypertension) Depression Mental health disorder Sister Mental health disorder Social History Household Members: Significant Other and Children Housing: House Alcohol intake: current Alcohol intake frequency: a few times a week Patient Tobacco Use Status: Former Tobacco user Years Smoked: 3 yrs e-Cigarette/Vaping Use: Never Used Second Hand Smoke Exposure: No Patient : No service: No Current occupational status: employed 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 Sexual orientation: Straight/Heterosexual Gender identity: Female Cognitive needs: No Hearing needs: No Vision needs: Yes Female Reproductive History Menstrual Age of Menarche: 13 control method: permanent sterilization Physical Exam Vital Signs: Last Vital Signs BP 122/76 05/05/23 13:39 BMI result Body Mass Index 29.3 Office Procedures Endometrial Biopsy Details: The patient was counseled regarding the indication and benefits of endometrial sampling to rule out endometrial pathology including not limited to endometrial hyperplasia or endometrial cancer and others; The alternatives (Either do nothing vs. hysteroscopy D&C) & the risks were discussed with the patient including but not limited: pain, uterine perforation, bleeding, infection, possible injury to bladder, bowel, ureter, possible need for blood transfusion with all its possible risks. The patient verbalized understanding all questions answered and signed consent. The patient was placed into the dorsal lithotomy position; a speculum was inserted in the vagina. Using aseptic technique for the procedure, the cervix was cleansed with Betadine. The anterior lip of the cervix was grasped with a single tooth tenaculum. The uterus was sounded to 7 cm with a 4 mm Pipelle was used. Tissues samples were obtained and placed in formalin, in a patient labeled container and sent to the pathology department. At the end of the procedure, there was minimal bleeding noted The patient tolerated the procedure well and was discharged in good condition with the following instructions: Nothing in the vagina until the bleeding stops. No sex until the bleeding stops, to call if any of the following occurs: fever (>100.4), flu-like symptoms, abdominal pain, heavy bleeding, four smelling vaginal discharge. The patient was instructed to schedule a Follow up appointment in 2 weeks to discuss pathology results of the biopsy and treatment options. This note was generated with a voice recognition program. Some errors may have been overlooked during the review of this note. Sometimes these errors may affect the content or meaning of a given sentence. [id number] Biopsy Assessment & Plan Assessment & Plan (1) Postmenopausal bleeding: Comment: Status post endometrial ablation Code(s): N95.0 - Postmenopausal bleeding Plan: Discussed with the patient the pelvic ultrasound findings, the endometrial stripe thickenss measured by ultrasound was more than 4mm. The negative predictive value, positive predictive value, Sensitivity, specificity of using ultrasound measurement of endometrial stripe to detecting endometrial pathology including hyperplasia , polyp or cancer were discussed with the patient. Recommended to the patient that the next step is an endometrial sampling via hysteroscopy D&C possible polypectomy versus endometrial biopsy to r/o endometrial pathology including hyperplasia or cancer. All the pros and cons risks and benefits of each approach were discussed with the patient, endometrial biopsy being less invasive, office procedure with less sensitivity and inability diagnose a polyp and removal versus hysteroscopy done under anesthesia more invasive more sensitive to endometrial cancer and possibility of diagnosing and endometrial polyp with the possibility of polypectomy. All questions were answered pt verbalized understanding and decided to proceed with endometrial biopsy, EMB done, see procedure (2) Ovarian cyst: Comment: 2 Left ovarian cyst with calcified cyst wall, With possible right hydrosalpinx versus collapsed ovarian cyst Code(s): N83.209 - Unspecified ovarian cyst, unspecified side Plan: Discussed with the patient the complex ovarian cyst by ultrasound. Discussed with the patient the Ultrasound findings, the main limitation of transvaginal ultrasonography alone as a diagnostic tool to distinguish benign from malignant masses relates to its lack of specificity and low positive predictive value for cancer. The differential diagnosis discussed with the patient includes the following but not limited to: benign and malignant gynecological and non-gynecological causes. , Since pelvic ultrasound was done in mid 03/09 will repeat ultrasound and will order.serum tumor marker CA 125, CA 19-9, see . Discussed with the patient that CA 125 is a protein associated with epithelial ovarian malignancies, but also frequently expressed at lower levels by nonmalignant tissue. Elevation of CA 125 levels may occur in nonmalignant gynecologic conditions, and in non-gynecologic cancers, It is most useful in postmenopausal women and in identifying non mucinous epithelial cancer. The CA 125 level is elevated in 80% of patients with epithelial ovarian cancer but in only 50% of patients with stage I disease. The overall sensitivity of CA 125 testing in distinguishing benign from malignant adnexal masses reportedly ranges from 61% to 90%; discussed with the patient the specificity, positive predictive value and negative predictive value. Instructions given the patient to schedule a 2 week follow-up ultrasound appointment. All questions were answered & the patient verbalized understanding and agreed with the plan. Orders: Orders CA-125 Today N83.299 - Other ovarian cyst, unspecified side Carcinoembryonic Antigen Today N83.299 - Other ovarian cyst, unspecified side Carbohydrate Antigen 19-9 Today N83.299 - Other ovarian cyst, unspecified side AMB Endometrial Biopsy Today N95.0 - Postmenopausal bleeding US pelvic and transvaginal 3 Months N83.299 - Other ovarian cyst, unspecified side Coding Level of Care Code Est Pt Level 3 (20155) Procedure Only Diagnoses Postmenopausal bleeding N95.0 Ovarian cyst N83.209 CPT Codes Endometrial Biopsy - CPT: 72324-[id number] Biopsy ([id number])
[2023-05-05 13:39] VITALS: BP 122/76; BMI 29.3
== END 2023-05-05 14:36 | disposition home or self-care (01) ==
LOC: HO.HWS 13:13
PROVIDERS: PCP Internal Medicine; Visit Provider Obstetrics & Gynecology
DX: N95.0 Postmenopausal bleeding (principal); N83.209 Unspecified ovarian cyst, unspecified side
CPT/HCPCS: 58100

== ENCOUNTER 2023-05-05 13:13 | Outpatient (REF) | payer OTHER, SELFPAY ==
[2023-05-05 16:38] LABS: Carcinoembryonic Antigen < 1.73 ng/mL
[2023-05-06 09:58] LABS: CA-125 26 U/mL (<35)
[2023-05-07 13:09] LABS: Carbohydrate Antigen 19-9 12 U/mL (<34)
== END 2023-05-05 13:14 | disposition home or self-care (01) ==
LOC: HO.LAB 13:13
PROVIDERS: PCP Internal Medicine; Visit Provider Obstetrics & Gynecology
DX: N95.0 Postmenopausal bleeding (principal); N83.299 Other ovarian cyst, unspecified side
CPT/HCPCS: 36415; 58100; 82378; 86301; 86304; 88305

== ENCOUNTER 2023-05-25 08:54 | Outpatient (REF) | payer OTHER, SELFPAY ==
[2023-05-25 11:51] LABS: Alanine Aminotransferase 14 U/L (0-31); Anion Gap 13 (12-20); Aspartate Amino Transferase 14 U/L (5-31); Blood Urea Nitrogen 12 mg/dL (9-16); Calcium 9.8 mg/dL (8.4-10.2); Carbon Dioxide 27 mmol/L (22-29); Chloride 106 mmol/L (96-108); Cholesterol 194 mg/dL (<200); Estimated Glomerular Filt Rate > 60; Glucose Fasting 98 mg/dL (60-99); HDL Cholesterol 51 mg/dL (>40); LDL Cholesterol Calculated 124 mg/dL (<100); Potassium 4.4 mmol/L (3.3-5.1); Sodium 142 mmol/L (135-145); Triglycerides 99 mg/dL (<150)
[2023-05-25 12:10] LABS: Vitamin D 25-OH Total 69.2 ng/mL (>30)
== END 2023-05-25 08:55 | disposition home or self-care (01) ==
LOC: HO.HMGCLDS 08:54
PROVIDERS: PCP Internal Medicine; Visit Provider Internal Medicine
DX: I10 Essential (primary) hypertension (principal); R73.01 Impaired fasting glucose; E78.5 Hyperlipidemia, unspecified; F41.9 Anxiety disorder, unspecified; F32.A Depression, unspecified
CPT/HCPCS: 36415; 80048; 80061; 82306; 83036; 84450; 84460

== ENCOUNTER 2023-05-26 08:09 | Outpatient (AMB) | payer OTHER, SELFPAY ==
[2023-05-26 08:13] VITALS: BP 118/82; PULSE 61; O2SAT 100; BMI 28.3
--- NOTE | 2023-05-26 08:13 | A.OFFPC_ITS ---
Vital Signs 05/26/23 08:13 Height 5 ft 4 in Weight 165 lb 2 oz BMI 28.3 BP 118/82 Blood Pressure Location Rt brachial Position Sitting Pulse 61 Pulse Source Pulse Oximeter Pulse Oximetry (%) 100 Oxygen Delivery Method Room Air Intake Visit Reasons: Annual- PE Intake Note: Pt is here for her Annual PE Allergies No Known Allergies Allergy (Verified 05/26/23 08:28) Medication List - Last Reconciled 05/26/23 by Bridgette Larson MD amlodipine 2.5 mg PO DAILY buspirone 7.5 mg PO TID cholecalciferol (vitamin D3) 50 mcg PO DAILY lisinopril-hydrochlorothiazide 20-12.5 mg 1 tab PO DAILY magnesium 250 mg PO DAILY omega-3 fatty acids 500 mg PO DAILY Tobacco use date assessed: 05/26/23 Dental Screening Dental Screen Date: 05/26/23 Did you have a dental visit in the last 12 months?: No Did you have a dental problem in the last 6 months where you did not have access to dental care?: No Was dental information given to patient?: Patient has dentist HPI Annual- PE HPI Details 58-year-old lady here today for physical exam. She has hypertension with blood pressure currently stable and controlled on amlodipine, -lisinopril-HCTZ. She had recent fasting labs which showed normal electrolytes, renal function, fasting glucose, lipids. She has anxiety depression currently stable controlled on buspirone 7.5 mg taken 1 tablet 3 times a day. Currently goes to [facility] for her routine Pap and pelvic exam, last Pap smear was done in 2021. She is currently being evaluated for postmenopausal bleeding by Dr. Perez. Up-to-date with her screening mammogram. She had an EGD and a screening colonoscopy done 02/[address] Mosquera which showed presence of esophagitis and internal hemorrhoids, repeat colonoscopy not due until 2028.. [facility] Medical History (Updated 05/26/23 @ 09:01 by Bridgette Larson MD) Postmenopausal bleeding History of COVID-19 Esophagitis determined by endoscopy Left shoulder pain Essential hypertension Anxiety and depression Numbness and tingling in left hand Cervicalgia COVID-19 virus infection Hypertension, uncontrolled Impaired fasting glucose Dyslipidemia Surgical History (Updated 05/26/23 @ 08:35 by Bridgette Larson MD) Hx of colonoscopy S/P endometrial ablation Hx of cholecystectomy History of tubal ligation Family History Father Diabetes mellitus HTN (hypertension) Cerebrovascular disease Stroke Mother HTN (hypertension) Depression Mental health disorder Sister Mental health disorder Social History Household Members: Significant Other and Children Housing: House Alcohol intake: current Alcohol intake frequency: a few times a week Patient Tobacco Use Status: Former Tobacco user Years Smoked: 3 yrs e-Cigarette/Vaping Use: Never Used Second Hand Smoke Exposure: No service: No Current occupational status: employed 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 1. Little interest or pleasure in doing things: not at all 2. Feeling down, depressed, or hopeless: not at all 3. Trouble falling or staying asleep, or sleeping too much: more than half the days 4. Feeling tired or having little energy: not at all 5. Poor appetite or overeating: not at all 6. Feeling bad about yourself - or that you are a failure or have let yourself o r your family down: not at all 7. Trouble concentrating on things, such as reading the newspaper or watching television: not at all 8. Moving or speaking so slowly that other people could have noticed. Or the opposite - being so fidgety or restless that you have been moving around a lot more than usual: not at all 9. Thoughts that you would be better off or of hurting yourself in some way: not at all Total score: 2 Depression Screening Interpretation: Positive Depression Screening Follow-up: Existing condition and In treatment (Controlled on buspirone 7.5 mg taken 1 tablet twice a day) Depression Screening Done: Yes 55962 - PHQ-9 Billing: Yes Source: Developed by Drs. Kei Jackson, Lizette Read, Michael Grande and colleagues, with an educational aura from [employer]. Thrive Questionnaire Date Thrive assessed: 05/26/23 I am a: Patient What is your living situation today?: I have a steady place to live Within the past 12 months, did the food you bought not last and you didn't have the money to get more?: Never true Within the past 12 months, did you worry whether your food would run out before you got money to buy more?: Never true Do you have trouble paying for medicines?: No Do you have trouble getting transportation to medical appointments?: No Do you have trouble paying your heating and electricity bill?: No Do you have trouble taking care of your child, family member or friend?: No Do you have trouble with day-to-day activities such as bathing, preparing meals, shopping, managing finances, etc.?: No Are you currently unemployed and looking for a job?: No Are you interested in more education?: No AUDIT C Alcohol Use Questionnaire (AUDIT-C) 1. How often do you have a drink containing alcohol?: 2-4 times a month 2. How many drinks containing alcohol do you have on a typical day when you are drinking?: 1 or 2 3. How often do you have six or more drinks on one occasion?: Never Total Score: 2 GRZEGORZ-7 AMB Questionnaire GRZEGORZ-7 Date GRZEGORZ - 7 assessed: 05/26/23 Feeling nervous, anxious, or on edge: 1 = Several days Not being able to stop or control worryin = Several days Worrying too much about different things: 1 = Several days Trouble relaxin = Several days Being so restless that it is hard to sit still: 0 = Not at all Becoming easily annoyed or irritable: 0 = Not at all Feeling afraid as if something awful might happen: 0 = Not at all Total GRZEGORZ-7 score (0-4 normal; 5-9 mild; 10-14 moderate; 15-21 severe): 4 Source: Developed by Drs. Kei Jackson, Lizette Read, Michael Grande and colleagues, with an educational aura from [employer]. GRZEGORZ-7 Assessment Billing GRZEGORZ-7 Assessment Tool: GRZEGORZ-7 Assessment 74003 Review of Systems Const Reports as per HPI, Denies body aches, Denies excessive sweating, Denies fatigue, Denies fever(s), Denies headache(s), Denies lethargy, Denies weakness and Reports weight loss (Currently on a diet and exercises regularly) Eyes Details: Goes to [facility] for her routine eye exam, currently up-to-date Denies change in vision, Denies eye discharge and Denies itchy eyes ENT Denies dizziness, Denies otalgia, Denies headache(s), Denies nasal congestion, Denies nasal discharge, Denies post nasal drip and Denies sore throat Card Denies chest pain, Denies chest pain with activity, Denies lightheadedness, Denies palpitations and Denies dyspnea Resp Denies cough, Denies dyspnea and Denies wheezing GI Denies abdominal pain, Denies melena, Denies hematochezia, Denies change in bowel habits, Denies change in stool character, Denies dyspepsia and Denies heartburn Reports abnormal vaginal bleeding (Currently being followed by Dr. Perez for evaluation postmenopausal bleed), Denies hematuria, Denies urinary frequency, Denies difficulty voiding, Denies hot flashes, Denies nipple discharge, Denies dysuria, Denies urinary incontinence, Denies urinary hesitancy, Denies urinary urgency, Denies vaginal discharge, Denies vaginal odor and Denies vaginal pruritus Musc Reports no additional complaints Skin/Breast Denies breast pain, Denies breast mass, Denies lesions, Denies nipple discharge and Denies rash Neuro Denies dizziness, Denies headache(s) and Denies weakness Psych Reports no additional complaints Endo Denies excessive sweating, Denies fatigue, Denies polydipsia, Denies polyuria and Denies palpitations Mp/Lymph Denies easy bleeding and Denies easy bruising Aller/Immun Denies itchy eyes, Denies seasonal rhinorrhea and Denies wheezing Physical exam (Primary Care) Vital Signs: Last Vital Signs Pulse 61 05/26/23 08:13 BP 118/82 05/26/23 08:13 Pulse Ox 100 05/26/23 08:13 Oxygen Delivery Method Room Air 05/26/23 08:13 BMI result Body Mass Index 28.3 Tobacco/Smoking Status: Tobacco use Status Tobacco use date assessed 05/26/23 05/26/23 08:22 Patient Tobacco Use Status Former Tobacco user 05/26/23 08:14 e-Cigarette/Vaping Use Never Used 05/26/23 08:14 Depression Screening Interpretation: Positive Depression Screening Follow-up: Existing condition and In treatment (Controlled on buspirone 7.5 mg taken 1 tablet twice a day) Thrive Assessment: Date of Thrive Assessment Date Thrive assessed 10/16/22 05/26/23 08:14 Const General: no acute distress and alert Orientation/consciousness: patient oriented x3 HENMT Head: Yes normocephalic and Yes atraumatic Ears: external ears normal, TM's normal bilaterally and EAC's normal General nose exam: Normal external nose present and No nasal discharge present Face and sinus: Yes face symmetric Mouth: Normal oral and palatal mucosa present, tongue normal, oropharynx normal and moist mucous membranes Eyes General: appearance normal, both eyes and all related structures Eyelids: Yes eyelids normal Conjunctivae: conjunctivae normal Sclerae: sclerae normal Pupils: Equal, round and reactive pupils present EOM: EOMs intact bilaterally Neck Neck: Yes full ROM, Yes no lymphadenopathy and Yes supple Thyroid: Thyroid normal Chest Chest palpation & inspection: normal inspection of the chest Breast/axilla inspection: normal inspection of the breasts Breast/axilla palpation: normal palpation of the breasts Resp Effort & Inspection: normal respiratory effort and able to speak in complete sentences Auscultation: clear to auscultation bilaterally Cardio Rate: regular rate Rhythm: regular rhythm Heart sounds: S1 normal heart sound present and S2 normal heart sound present Peripheral pulses: Peripheral pulses 2+ throughout GI Inspection: Yes normal to inspection Palpation (GI): Soft to palpation, nontender, no guarding and no masses Auscultation: normal bowel sounds Other: Not done, currently being followed and seen by [facility] for routine Pap and pelvic exam, currently up-to-date, last Pap done 2021 General: Yes no CVA tenderness Back/Spine/Pelvis Back: no CVA tenderness and No back tenderness Skin General skin exam: no rashes or lesions noted Hair: normal Nails: normal Neuro General: patient oriented x3, gait normal, moves all extremities, Normal light touch and pain sensation, no focal motor deficits and CN's II-XI intact bilaterally Cranial nerves: Yes Equal, round and reactive pupils present Cognition (Neuro): normal cognition Gait exam (Neuro): Normal gait present Motor exam (neuro): 5/5 motor strength present throughout Extrem General: Yes normal to inspection, Yes full ROM, Yes no joint enlargement, Yes no pedal edema and Yes normal gait Psych Appearance: grossly normal and well kempt Mental Status: mental status grossly normal Speech and movement: Normal speech and movement present Affect: normal affect Attitude: cooperative Thought process: Normal thought process present Thought content: Normal thought content present Results Reviewed Results Reviewed: Name: Priya Ferrer Age/Sex: 58/F : 1965 Unit#: [id number] Attend Dr: Bridgette Larson MD Re05/25/23 Status: DEP REF Location: [facility] Disch: SPEC : [id number] PRITI: 05/25/23 STATUS: COMP REQ : [id number] RECD: 05/25/23-[address]: Bridgette Larson MD COMP: 05/25/23 ENTERED: 05/25/[address] [facility] [address]: ORDERED: Met Prof Fast, AST, ALT, Lipid Panel, Vitamin D 25-OH Test Result Flag Reference Site Sodium 142 135-145 mmol/L Potassium 4.4 3.3-5.1 mmol/L CL 106 96-108 mmol/L CO2 27 22-29 mmol/L Gap 13 12-20 BUN 12 9-16 mg/dL Creat 0.86 0.5-1.4 mg/dL EGFR > 60 NOTE: For -Finn[place] individuals, multiply the result by 1.210. Chronic Kidney Disease: Estimated GFR < 60 mL/min/1.73m2 Severe Kidney Disease: Estimated GFR < 15 mL/min/1.73m2 FBS 98 60-99 mg/dL CA 9.8 8.4-10.2 mg/dL AST (GOT) 14 5-31 U/L ALT (GPT) 14 0-31 U/L Triglyceride 99 <150 mg/dL Desirable Triglyceride: less than 150 mg/dL Borderline High Triglyceride 150-199 mg/dL High Triglyceride: 200-499 mg/dL Very High Triglyceride: greater than or equal to 5OO mg/dL Cholesterol 194 <200 mg/dL Desirable Cholesterol: less than 200 mg/dL Borderline High Cholesterol: 200-239 mg/dL High Cholesterol: greater than 239 mg/dL LDL Calculated 124 H <100 mg/dL Desirable LDL: less than 100 mg/dL Near Optimal/Above Optimal LDL: 110-129 mg/dL Borderline High LDL: 130-159 mg/dL High LDL: 160-189 mg/dL Very High LDL: greater than or equal to 190 mg/dL HDL 51 >40 mg/dL Desirable HDL: greater than 40 mg/dL Note: This HDL assay may give artificially low results in patients with liver disease. Vit D 25-OH Tot 69.2 >30 ng/mL Health Based Reference Values* < 20 ng/mL Deficient 20-30 ng/mL Insufficient > 30 ng/mL Sufficient Assessment and Plan Assessment & Plan (1) Annual visit for general adult medical examination with abnormal findings: Code(s): Z00.01 - Encounter for general adult medical examination with abnormal findings Plan: Reviewed recent fasting lab results with patient Recommended dental visit every 6 months and regular eye exams, at least every 2 years currently up-to-date goes to [facility]. Take adequate calcium in diet and vitamin-D 3 at 2000 IU per cap once a day, in addition to weight-bearing exercises to help maintain good muscle tone and weight control. Instructed to do self-breast exam, and up-to-date with her yearly mammogram, up-to-date with her cervical cancer screening, last done by Dr. Perez in 2021. Patient has had COVID vaccines and flu shots in the past but does not want to get booster or flu vaccine at this time, up-to-date with Tdap, reminded to get her shingles vaccine . Up-to-date with her screening colonoscopy due again in 2028, done by Dr. Mosquera (2) Essential hypertension: Code(s): I10 - Essential (primary) hypertension (3) Anxiety and depression: Code(s): F41.9 - Anxiety disorder, unspecified; F32.A - Depression, unspecified Plan: Stable controlled on buspirone 7.5 mg taken 1 tablet twice a day. (4) Impaired fasting glucose: Code(s): R73.01 - Impaired fasting glucose Plan: Latest hemoglobin A1c within normal limits, continue adherence to healthy eating habits and regular exercise. (5) Dyslipidemia: Code(s): E78.5 - Hyperlipidemia, unspecified Plan: Reviewed recent fasting lipid profile with patient with levels within normal . Continue with taking [place] 3 fatty acid supplement , in addition to adherence to low-cholesterol diet and regular exercise, at least 30 minutes 3 to 4 times a week. Advised patient to make healthy food choices, eat more fruits, vegetables, whole grains, wild caught fish and low-fat dairy. Limit amount of meat and fried or fatty food products, as well as processed foods and fast foods. Follow-up scheduled with repeat fasting lipid panel in 9 months. (6) Advanced directives, counseling/discussion: Code(s): Z71.89 - Other specified counseling Plan: Initiated the conversation about Advanced Directives. Advanced Directives help patients prepare for current and future decisions about their medical treatment and place of care. Discussed with patient that it is a process where a patients current condition and prognosis are reviewed, their wishes for information regarding their illness are elicited, and likely medical dilemmas are presented and options discussed. Healthcare proxy form given to patient, states she will complete at home , will discuss with her family. The form can be amended as needed, reviewed yearly and make changes as needed Coding Level of Care Code Est Pt Prev Care 40-64y(15141) Diagnoses Annual visit for general adult medical examination with abnormal findings Z00.01 Essential hypertension I10 Anxiety and depression F41.9; F32.A Impaired fasting glucose R73.01 Dyslipidemia E78.5 Advanced directives, counseling/discussion Z71.89 Additional Codes GRZEGORZ-7 Assessment Billing - GRZEGORZ-7 Assessment Tool: GRZEGORZ-7 Assessment 56981 ([id number])
== END 2023-05-26 08:52 | disposition home or self-care (01) ==
LOC: HO.HMGC 08:09
PROVIDERS: PCP Internal Medicine; Visit Provider Internal Medicine
DX: Z00.00 Encounter for general adult medical examination without abnormal findings (principal); I10 Essential (primary) hypertension; F41.9 Anxiety disorder, unspecified; F33.9 Major depressive disorder, recurrent, unspecified; R73.01 Impaired fasting glucose; E78.5 Hyperlipidemia, unspecified; Z71.89 Other specified counseling
CPT/HCPCS: 96127; 99396

== ENCOUNTER 2023-05-27 15:08 | Outpatient (AMB) | payer OTHER, SELFPAY ==
[2023-05-27 15:29] VITALS: BP 110/70
--- NOTE | 2023-05-27 15:29 | MHC.OFFVIS ---
Intake Vital Signs 05/27/23 15:29 BP 110/70 Intake Visit Reasons: pre op Allergies No Known Allergies Allergy (Verified 05/26/23 08:28) HPI HPI Comments History of Present Illness Details The patient is presenting after endometrial biopsy. The patient has no complaints, no vaginal bleeding, no feverishness chills or abdominal pain. Endometrial biopsy pathology showed the following: Endometrium, biopsy: Strips of mucinous epithelium; abundant blood. See comment. COMMENT: No overt features of malignancy are seen. The mucinous epithelium may be endocervical in origin or represent metaplastic changes in the endometrium. Further sampling (curettage) is recommended. Pelvic ultrasound done in 03/09 showed endometrial fluid in the endometrial cavity with endometrial stripe of 6 mm in addition to: Anechoic tubular structure in the right adnexa similar to 06/27/2021 pelvic ultrasound, possibly representing a hydrosalpinx versus collapsed/flattened cyst as previously noted. Left ovary with 2 cysts with peripheral calcifications and each measuring 2.2 cm. Previous ultrasound demonstrated a single 2.8 cm cyst with peripheral calcification Repeat pelvic ultrasound scheduled in the coming few days PFS Medical History Postmenopausal bleeding History of COVID-19 Esophagitis determined by endoscopy Left shoulder pain Essential hypertension Anxiety and depression Numbness and tingling in left hand Cervicalgia COVID-19 virus infection Hypertension, uncontrolled Impaired fasting glucose Dyslipidemia Surgical History Hx of colonoscopy S/P endometrial ablation Hx of cholecystectomy History of tubal ligation Family History Father Diabetes mellitus HTN (hypertension) Cerebrovascular disease Stroke Mother HTN (hypertension) Depression Mental health disorder Sister Mental health disorder Social History Household Members: Significant Other and Children Housing: House Alcohol intake: current Alcohol intake frequency: a few times a week Patient Tobacco Use Status: Former Tobacco user Years Smoked: 3 yrs e-Cigarette/Vaping Use: Never Used Second Hand Smoke Exposure: No service: No Current occupational status: employed 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 Sexual orientation: Straight/Heterosexual Gender identity: Female Cognitive needs: No Hearing needs: No Vision needs: Yes Female Reproductive History Menstrual Age of Menarche: 13 Review of Systems Const All systems reviewed & are unremarkable except as noted in HPI and below Reports as per HPI and Reports no additional complaints GI Reports no additional complaints Reports no additional complaints Physical Exam Vital Signs: Last Vital Signs BP 110/70 05/27/23 15:29 Assessment & Plan Assessment & Plan (1) Ovarian cyst: Comment: 2 Left ovarian cyst with calcified cyst wall, With possible right hydrosalpinx versus collapsed ovarian cyst Code(s): N83.209 - Unspecified ovarian cyst, unspecified side Plan: Repeat Ultrasound scheduled in the coming few days. Instructions given the patient to schedule a follow-up ultrasound appointment. (2) Postmenopausal bleeding: Comment: Status post endometrial ablation Code(s): N95.0 - Postmenopausal bleeding Plan: Discussed with the patient the results the endometrial biopsy pathology showing insufficient tissue rule out endometrial pathology recommended further sampling. Explained to the patient and endometrial pathology including endometrial hyperplasia and/or malignancy has not been ruled out chest. The next steps in the management to rule out endometrial pathology were discussed with the patient including either repeat office endometrial biopsy, or hysteroscopy D&C or referral to [facility] for further management. The patient elected to proceed with referral to [facility] . Will wait for the results ultrasound an refer the patient to [facility] peer All questions answered, the patient verbalized understand Coding Level of Care Code Est Pt Level 3 (99916) Diagnoses Ovarian cyst N83.209 Postmenopausal bleeding N95.0
== END 2023-05-27 15:51 | disposition home or self-care (01) ==
LOC: HO.HWS 15:08
PROVIDERS: PCP Internal Medicine; Visit Provider Obstetrics & Gynecology
DX: N83.209 Unspecified ovarian cyst, unspecified side (principal); N95.0 Postmenopausal bleeding
CPT/HCPCS: 99213

== ENCOUNTER → 2023-05-27 15:08 | Outpatient (BNVA) | payer OTHER, SELFPAY | PROVIDERS: PCP Internal Medicine; Visit Provider Obstetrics & Gynecology | DX: N83.209 Unspecified ovarian cyst, unspecified side (principal); N95.0 Postmenopausal bleeding | CPT/HCPCS: 99212 ==

== ENCOUNTER 2023-06-04 15:55 | Outpatient (REF) | payer OTHER, SELFPAY ==
--- NOTE | ~2023-06-04 | US_ITS ---
EXAMINATION: US PELVIS COMPLETE CLINICAL INFORMATION: Ovarian cysts COMPARISON: None TECHNIQUE: Transabdominal and transvaginal imaging was performed. FINDINGS: The uterus is of normal size and echogenicity measuring 8.0 x 4.0 x 4.8 cm. Focal fluid is noted with the the endometrial canal. Endometrium measures 2 mm in thickness. Both ovaries are of normal size and echogenicity. The right measures 3.0 x 1.5 x 1.7 cm for a volume of 4.0 mL. The left measures 2.8 x 2.2 x 2.4 cm for a volume of 7.7 mL. A 2.1 cm unilocular almost certainly benign left ovarian cyst, previously 2.2 cm, no follow-up imaging recommended. A second previously seen left ovarian cyst has intervally resolved Dilated tubular structure in the right adnexa may reflect a mild hydrosalpinx. There is no pelvic free fluid. US/US pelvic and transvaginal IMPRESSION: 1. A 2.1 cm unilocular almost certainly benign left ovarian cyst, no follow-up imaging recommended. A second previously seen left ovarian cyst has intervally resolved. 2. Dilated tubular structure in the right adnexa may reflect a mild hydrosalpinx. 3. Focal fluid is noted with the endometrial canal. Endometrium measures 2 mm in thickness.
== END 2023-06-04 15:56 | disposition home or self-care (01) ==
LOC: HO.US 15:55
PROVIDERS: PCP Internal Medicine; Visit Provider Obstetrics & Gynecology
DX: N83.299 Other ovarian cyst, unspecified side (principal)
CPT/HCPCS: 76830; 76856

== ENCOUNTER 2023-06-15 11:56 | Outpatient (AMB) | payer OTHER, SELFPAY ==
--- NOTE | 2023-06-15 12:03 | A.OFFVIS_ITS ---
Intake Vital Signs 06/15/23 12:05 Height 5 ft 4 in Weight 163 lb 2.273 oz BMI 28.0 BP 122/76 Intake Visit Reasons: U/S results ok per brigid Allergies No Known Allergies Allergy (Verified 05/26/23 08:28) HPI HPI Comments History of Present Illness Details Presenting for ultrasound follow-up regarding left ovarian cyst with calcification seen ultrasound done in 03/09. Follow-up repeat Pelvic ultrasound done in 05/06 showed the following: The uterus is of normal size and echogenicity measuring 8.0 x 4.0 x 4.8 cm. Focal fluid is noted with the the endometrial canal. Endometrium measures 2 mm in thickness. Both ovaries are of normal size and echogenicity. The right measures 3.0 x 1.5 x 1.7 cm for a volume of 4.0 m L. The left measures 2.8 x 2.2 x 2.4 cm for a volume of 7.7 mL. A 2.1 cm unilocular almost certainly benign left ovarian cyst, previously 2.2 cm, no follow-up imaging recommended. A second previously seen left ovarian cyst has intervally resolved Dilated tubular structure in the right adnexa may reflect a mild hydrosalpinx. There is no pelvic free fluid. CA 19-9, CEA and CA 125 were within normal In addition the patient developed postmenopausal bleeding endometrial biopsy was insufficient for an evaluation, the patient will referred to [facility] for further evaluation given her history of endometrial ablation COUNTS INCLUDE 234 BEDS AT THE [facility] Medical History Postmenopausal bleeding History of COVID-19 Esophagitis determined by endoscopy Left shoulder pain Essential hypertension Anxiety and depression Numbness and tingling in left hand Cervicalgia COVID-19 virus infection Hypertension, uncontrolled Impaired fasting glucose Dyslipidemia Surgical History Hx of colonoscopy S/P endometrial ablation Hx of cholecystectomy History of tubal ligation Family History Father Diabetes mellitus HTN (hypertension) Cerebrovascular disease Stroke Mother HTN (hypertension) Depression Mental health disorder Sister Mental health disorder Social History Household Members: Significant Other and Children Housing: House Alcohol intake: current Alcohol intake frequency: a few times a week Patient Tobacco Use Status: Former Tobacco user Years Smoked: 3 yrs e-Cigarette/Vaping Use: Never Used Second Hand Smoke Exposure: No service: No Current occupational status: employed 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 Sexual orientation: Straight/Heterosexual Gender identity: Female Cognitive needs: No Hearing needs: No Vision needs: Yes Female Reproductive History Menstrual Age of Menarche: 13 Review of Systems Const All systems reviewed & are unremarkable except as noted in HPI and below Reports as per HPI and Reports no additional complaints GI Reports no additional complaints Reports no additional complaints Physical Exam Vital Signs: Last Vital Signs BP 122/76 06/15/23 12:05 BMI result Body Mass Index 28.0 Assessment & Plan Assessment & Plan (1) Ovarian cyst: Comment: 2 Left ovarian cyst with calcified cyst wall, With possible right hydrosalpinx versus collapsed ovarian cyst Code(s): N83.209 - Unspecified ovarian cyst, unspecified side Plan: Discussed with the patient ultrasound findings showing the previously identified ovarian cyst with calcification has resolved. The unilocular 2.1 cm cyst is persistent but is associated low risk of malignancy. Will repeat ultrasound in 6 months to confirm the stability of the cyst . All questions were answered the patient verbalized understanding. 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 Appointment scheduled on 06/16/2023, the patient is aware Orders: Orders US pelvic and transvaginal 6 Months N83.209 - Unspecified ovarian cyst, unspecified side Coding Level of Care Code Est Pt Level 3 (25907) Diagnoses Ovarian cyst N83.209 Hydrosalpinx N70.11 Postmenopausal bleeding N95.0
[2023-06-15 12:05] VITALS: BP 122/76; BMI 28.0
== END 2023-06-15 14:32 | disposition home or self-care (01) ==
LOC: HO.HWS 11:56
PROVIDERS: PCP Internal Medicine; Visit Provider Obstetrics & Gynecology
DX: N83.209 Unspecified ovarian cyst, unspecified side (principal); N70.11 Chronic salpingitis; N95.0 Postmenopausal bleeding
CPT/HCPCS: 99213

== ENCOUNTER → 2023-06-15 11:56 | Outpatient (BNVA) | payer OTHER, SELFPAY | PROVIDERS: PCP Internal Medicine; Visit Provider Obstetrics & Gynecology | DX: N83.209 Unspecified ovarian cyst, unspecified side (principal); N70.11 Chronic salpingitis; N95.0 Postmenopausal bleeding | CPT/HCPCS: 99212 ==

== ENCOUNTER → 2023-10-30 11:15 | Outpatient (BNV) | payer OTHER, SELFPAY | PROVIDERS: PCP Internal Medicine; Visit Provider Radiology Diagnostic Radiology | DX: Z12.31 Encounter for screening mammogram for malignant neoplasm of breast (principal) | CPT/HCPCS: 77063; 77067 ==

== ENCOUNTER 2023-10-30 11:18 | Outpatient (REF) | payer OTHER, SELFPAY | END 2023-10-30 11:19 | disposition home or self-care (01) | LOC: HO.MAMMO 11:18 | PROVIDERS: PCP Internal Medicine; Visit Provider Internal Medicine | DX: Z12.31 Encounter for screening mammogram for malignant neoplasm of breast (principal) | CPT/HCPCS: 77063; 77067 ==

== ENCOUNTER 2023-12-14 11:07 | Outpatient (REF) | payer OTHER, SELFPAY ==
--- NOTE | ~2023-12-14 | US_ITS ---
EXAMINATION: US PELVIS CLINICAL INFORMATION: Unspecified ovarian cyst, unspecified side, postmenopausal. COMPARISON: 06/04/2023 TECHNIQUE: Ultrasound of the pelvis is performed using both transabdominal and transvaginal transducers along with Doppler. Transvaginal imaging is performed due to inadequate visualization transabdominally. FINDINGS: The uterus is anteverted and measures 8.6 x 4.6 x 6.1 cm. Endometrial thickness is 8 mm. Small amount of fluid within the endometrial cavity. No significant free fluid. Right ovary measures 3.7 x 1.8 x 2.5 cm, volume 8.8 mL. 1.8 x 1.3 x 1.6 cm and 1.7 x 1.3 x 1.8 cm right ovarian cysts are likely simple and were not appreciated on the prior exam. Left ovary measures 3.9 x 1.5 x 2.5 cm, volume 7.8 mL. Left ovarian 1.7 x 0.7 x 1.7 cm cyst is likely simple. Previous exam demonstrated a 2.1 cm left ovarian cyst for which no follow-up imaging was recommended. There is no specific indication for additional imaging at this time. Redemonstration of tubular structure in the right adnexa measuring 3.0 x 1.1 x 0.9 cm, may represent a hydrosalpinx. Left adnexal tubular structure was not previously identified and may also represent a hydrosalpinx. US/US pelvic and transvaginal IMPRESSION: 1. Endometrial thickness of 8 mm is abnormal in a postmenopausal patient. Small amount of fluid within the endometrial cavity. 2. Right ovarian likely simple cysts measuring 1.8 cm each in maximum dimension are almost certainly benign. Follow-up ultrasound could be obtained in 12 months based on the clinical setting. 3. Bilateral adnexal tubular structures are characteristic of hydrosalpinges. Previous exam demonstrated a probable right hydrosalpinx. This study was presented today December 23, 2023 for interpretation. Stat results provided at this time as requested by referring provider. Management of Adnexal Lesions (newly detected incidentally on US in asymptomatic* non females) Cyst Size Postmenopausal Female * < 1 cm: No follow-up. Clinically inconsequential. At your discretion, may not need to be described in the report. * > 1 to 7 cm: Describe and include ?almost certainly benign? and recommend yearly follow-up, * at least initially, with US. * > 7 cm: Further imaging with MR or surgery. Length of follow-up: No consensus was reached regarding how long a lesion must be followed to demonstrate its stability. Cystic ovarian neoplasms generally grow very slowly. These recommendations may be helpful in symptomatic women as well, but the clinical setting will often determine management in a manner beyond the scope of these recommendations. Reference: Kel et. al. Management of Asymptomatic Ovarian and Other Adnexal Cysts Imaged at US, Society of Radiologists in Ultrasound Consensus Statement, Ultrasound Quarterly 2010;26:121-131. Management of Adnexal Lesions (newly detected incidentally on US in asymptomatic* non females) Cyst Size Reproductive Age Female * < 3 cm: No follow-up. Normal physiology. At your discretion, may not need to be described in the report. * > 3 to 5 cm: No follow-up. Describe in report and include ?almost certainly benign?. * > 5 to 7 cm: Yearly follow-up. Describe in report and include ?almost certainly benign?. * > 7 cm: Further evaluation with MR or surgery should be considered since these may be difficult to assess completely with US. Cyst Size Postmenopausal Female * < 1 cm: No follow-up. Clinically inconsequential. At your discretion, may not need to be described in the report. * > 1 to 7 cm: Describe and include ?almost certainly benign? and recommend yearly follow-up, * at least initially, with US. * > 7 cm: Further imaging with MR or surgery. Length of follow-up: No consensus was reached regarding how long a lesion must be followed to demonstrate its stability. Cystic ovarian neoplasms generally grow very slowly. These recommendations may be helpful in symptomatic women as well, but the clinical setting will often determine management in a manner beyond the scope of these recommendations. Reference: Kel et. al. Management of Asymptomatic Ovarian and Other Adnexal Cysts Imaged at US, Society of Radiologists in Ultrasound Consensus Statement, Ultrasound Quarterly 2010;26:121-131.
== END 2023-12-14 11:08 | disposition home or self-care (01) ==
LOC: HO.US 11:07
PROVIDERS: PCP Internal Medicine; Visit Provider Obstetrics & Gynecology
DX: N83.209 Unspecified ovarian cyst, unspecified side (principal)
CPT/HCPCS: 76830; 76856

== ENCOUNTER 2023-12-23 09:19 | Outpatient (AMB) | payer OTHER, SELFPAY ==
[2023-12-23 09:33] VITALS: BP 118/76; BMI 28.0
--- NOTE | 2023-12-23 09:33 | A.OFFVIS_ITS ---
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 No complaints. No vaginal bleeding Last Pap/HPV was negative in 06/08 Last Mammogram was BI-RADS 1 in 11/08 Last Colonoscopy was in 03/05, the recommendation was to repeat in 10 years Follow-up ultrasound showed the following: The uterus is anteverted and measures 8.6 x 4.6 x 6.1 cm. Endometrial thickness is 8 mm. Small amount of fluid within the endometrial cavity. No significant free fluid. Right ovary measures 3.7 x 1.8 x 2.5 cm, volume 8.8 mL. 1.8 x 1.3 x 1.6 cm and 1.7 x 1.3 x 1.8 cm right ovarian cysts are likely simple and were not appreciated on the prior exam. Left ovary measures 3.9 x 1.5 x 2.5 cm, volume 7.8 mL. Left ovarian 1.7 x 0.7 x 1.7 cm cyst is likely simple. Previous exam demonstrated a 2.1 cm left ovarian cyst for which no follow-up imaging was recommended. There is no specific indication for additional imaging at this time. Redemonstration of tubular structure in the right adnexa measuring 3.0 x 1.1 x 0.9 cm, may represent a hydrosalpinx. Left adnexal tubular structure was not previously identified and may also represent a hydrosalpinx. 05/09 The patient had an office endometrial biopsy for postmenopausal bleeding and the pathology showed the following: Strips of mucinous epithelium; abundant blood. See comment. COMMENT: No overt features of malignancy are seen. The mucinous epithelium may be endocervical in origin or represent metaplastic changes in the endometrium. Further sampling (curettage) is recommended Because of the patient has history of endometrial ablation and insufficient endometrial sampling, the patient was referred to [facility] , underwent hysteroscopy D&C by Dr Cavazos, there was extensive intrauterine adhesions and the pathology report showed the following: Extremely scant fragments of endometrium insufficient for further evaluation . Instructions were given to the patient to follow-up with Adán to call in case of any additional vaginal bleeding occurs then she will be candidate for hysterectomy. [facility] Medical History Postmenopausal bleeding History of COVID-19 Esophagitis determined by endoscopy Left shoulder pain Essential hypertension Anxiety and depression Numbness and tingling in left hand Cervicalgia COVID-19 virus infection Hypertension, uncontrolled Impaired fasting glucose Dyslipidemia Surgical History Hx of colonoscopy S/P endometrial ablation Hx of cholecystectomy History of tubal ligation Family History Father Diabetes mellitus HTN (hypertension) Cerebrovascular disease Stroke Mother HTN (hypertension) Depression Mental health disorder Sister Mental health disorder Social History Household Members: Significant Other and Children Housing: House Alcohol intake: current Alcohol intake frequency: a few times a week Patient Tobacco Use Status: Former Tobacco user Years Smoked: 3 yrs e-Cigarette/Vaping Use: Never Used Second Hand Smoke Exposure: No service: No Current occupational status: employed 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 Sexual orientation: Straight/Heterosexual Gender identity: Female Cognitive needs: No Hearing needs: No Vision needs: Yes Female Reproductive History Menstrual Age of Menarche: 13 Menopause type: natural Total pregnancies: 6 Full term: 3 Number of Living Children: 3 Ab induced: 1 Ab spontaneous: 2 Date of last pap smear: 06/11/21 Date of Mammogram: 10/30/23 Review of Systems Const All systems reviewed & are unremarkable except as noted in HPI and below Card Reports as per HPI Resp Reports as per HPI GI Reports as per HPI and Reports no additional complaints Reports as per HPI Physical Exam Vital Signs: Last Vital Signs BP 118/76 12/23/23 09:33 BMI result Body Mass Index 28.0 Const General: cooperative, healthy appearing and comfortable Chest Chest palpation & inspection: normal inspection of the chest and normal palpation of entire chest wall Breast/axilla inspection: normal inspection of the breasts and normal inspection of the axillae Breast/axilla palpation: normal palpation of the breasts, normal palpation of the axillae and no axillary lymphadenopathy Resp Effort & Inspection: normal respiratory effort Auscultation: clear to auscultation bilaterally Percussion: percussion normal Cardio Palpation: normal PMI Rate: regular rate Rhythm: regular rhythm Heart sounds: no murmurs and no rubs Peripheral pulses: Peripheral pulses 2+ throughout GI Inspection: Yes normal to inspection Palpation (GI): Soft to palpation, nontender, no guarding, not rigid and No hepatosplenomegaly present Percussion: Yes normal to percussion Auscultation: normal bowel sounds Rectal Exam - Female: deferred General: Yes bladder normal to palpation External Female Exam: No lesion Speculum Exam - Vagina: normal appearance of the vagina, normal palpation, normal vaginal discharge and not erythematous Speculum Exam - Cervix: normal appearance of the cervix and normal palpation Bimanual exam- vagina & uterus: normal bimanual exam, normal palpation, uterine size normal, bladder normal to palpation, consistency normal and normal palpation Bimanual Exam- Adnexa, other: normal adnexae, no masses and no tenderness Assessment & Plan Assessment & Plan (1) Hydrosalpinx: Comment: Bilateral Code(s): N70.11 - Chronic salpingitis Category: Medical Plan: Discussed with the patient the finding on ultrasound showing bilateral hydrosalpinx, with no evidence of infection , no abdominal tenderness, no cervical motion tenderness or uterine or adnexal tenderness. Discussed with the patient signs and symptoms of PID, Instructions given to patient to call or go to emergency room in case of pelvic pain and or fever above 100.4, nausea or vomiting or vaginal bleeding or discharge (2) Ovarian cyst: Code(s): N83.209 - Unspecified ovarian cyst, unspecified side Category: Medical Plan: Discussed with the patient the finding on a pelvic ultrasound showing simple ovarian cysts with no evidence of suspicious features, with a size of less than 10 cm. Discussed the patient the limitation of pelvic ultrasound to differentiate between benign and malignant ovarian cyst. Explained to the patient that pelvic Ultrasound characteristics of benign masses include simple appearance: thin, smooth rosenberg; and the absence of solid components, septations, or internal blood flow on color Doppler ultrasound imaging. These simple cysts are highly likely to be benign in any age group. Studies have shown that spontaneous resolution occurs in more than 2/3 of cases. Simple cysts are almost always universally benign, regardless of menopausal status or cyst size, with malignancy rates in most series of 0?1% . Recommended repeat ultrasound in 12 months. Instructions given the patient to schedule a 12 months follow-up pelvic ultrasound with follow-up appointment afterwards. All questions answered, the patient verbalized understanding. (3) Thickened endometrium: Comment: 8 mm endometrial stripe with fluid in the endometrial cavity Code(s): R93.89 - Abnormal findings on diagnostic imaging of other specified body structures Category: Medical Plan: Discussed with the patient the finding of fluid in the endometrial cavity with thickened endometrium (8 mm) in menopause, in spite of no vaginal bleeding, the concern is the endometrial fluid visualized on ultrasound because of intrauterine adhesion, might caused by bleeding into the endometrial cavity and the blood and/or tissue was are unable to pass through the cervical os. Endometrial sampling in postmenopausal bleeding with endometrial fluid is indicated in case endometrial thickness is above 4 mm to rule out endometrial pathology including polyps, endometrial hyperplasia and/or malignancy; Discussed with the patient the pathology report from the hysteroscopy D&C done by Dr. Cavazos at [facility] in 09/08 showed extremely scant fragments of endometrium , insufficient for further evaluation . Explained to the patient that endometrial pathology including endometrial hyperplasia or malignancy, has not been ruled out yet with a high accuracy given the scarcity of the endometrial tissue secondary to her history of endometrial ablation and extensive intrauterine adhesions . I explained to the patient that the only way to rule out endometrial pathology is to proceed with hysterectomy although the risk is not extremely high; after further discussion all the pros and cons risks and benefits of the procedure and the associated risks of endometrial pathology, the patient expressed interested in hysterectomy. Discussed with the patient the different types of hysterectomies including, vaginal, laparoscopic assisted vaginal, robotic assisted laparoscopic,& abdominal . All pros, cons, r/b of each approach were discussed the patient including evidence that morbidity is less and recovery is shorter with minimally invasive approaches to hysterectomy. Discussed with the patient the lack of availability of the robot DaVinci robot and/or minimally invasive web coordinator specialist at [facility]. The Patient requested to be followed up at [facility]. A follow-up appointment with Dr. Cavazos's was scheduled. A copy of the ultrasound was given to the patient and was faxed to Dr. Cavazos's office All questions answered, the patient verbalized understanding Instructed the patient to call our office back in case a referral appointment is not scheduled, missed or canceled so that we will assist on rescheduling another appointment, the patient verbalized understanding agreed with the plan. (4) Well woman exam: Code(s): Z01.419 - Encounter for gynecological examination (general) (routine) without abnormal findings Category: Medical Plan: Co testing not indicated this year. Counseled the patient about the recommended dietary allowance of 1200 mg of Calcium & 600 IU of vitamin D. Instructions given the patient to schedule next screening Mammogram in 11/09. The patient was instructed to perform monthly self-breast exams and schedule annual exam in a year. All questions answered and the patient verbalized understanding. Orders: Orders US pelvic and transvaginal 12 Months N83.209 - Unspecified ovarian cyst, unspecified side Coding Level of Care Code Est Pt Prev Care 40-64y(85894) Diagnoses Hydrosalpinx N70.11 Ovarian cyst N83.209 Thickened endometrium R93.89 Well woman exam Z01.419
== END 2023-12-23 10:00 | disposition home or self-care (01) ==
LOC: HO.HWS 09:19
PROVIDERS: PCP Internal Medicine; Visit Provider Obstetrics & Gynecology
DX: Z01.419 Encounter for gynecological examination (general) (routine) without abnormal findings (principal); N70.11 Chronic salpingitis; N83.209 Unspecified ovarian cyst, unspecified side; R93.89 Abnormal findings on diagnostic imaging of other specified body structures
CPT/HCPCS: 99396

== ENCOUNTER → 2023-12-23 09:19 | Outpatient (BNVA) | payer OTHER, SELFPAY | PROVIDERS: PCP Internal Medicine; Visit Provider Obstetrics & Gynecology | DX: Z01.419 Encounter for gynecological examination (general) (routine) without abnormal findings (principal); N70.11 Chronic salpingitis; N83.209 Unspecified ovarian cyst, unspecified side; R93.89 Abnormal findings on diagnostic imaging of other specified body structures | CPT/HCPCS: 99396 ==

== ENCOUNTER 2024-01-13 11:00 | Outpatient (REF) | payer OTHER, SELFPAY ==
[2024-01-13 13:52] LABS: Cholesterol 239 mg/dL (<200); HDL Cholesterol 37 mg/dL (>40); LDL Cholesterol Calculated 150 mg/dL (<100); Triglycerides 260 mg/dL (<150)
== END 2024-01-13 11:01 | disposition home or self-care (01) ==
LOC: HO.HMGCLDS 11:00
PROVIDERS: PCP Internal Medicine; Visit Provider Internal Medicine
DX: E78.5 Hyperlipidemia, unspecified (principal)
CPT/HCPCS: 36415; 80061

== ENCOUNTER 2024-01-19 10:39 | Outpatient (AMB) | payer OTHER, SELFPAY ==
[2024-01-19 11:29] VITALS: BP 136/90; PULSE 66; O2SAT 97; BMI 32.1
--- NOTE | 2024-01-19 11:29 | A.OFFPC_ITS ---
Vital Signs 01/19/24 11:29 Height 5 ft 4 in Weight 187 lb BMI 32.1 BP 136/90 H Blood Pressure Location Rt brachial Position Sitting Pulse 66 Pulse Source Pulse Oximeter Pulse Oximetry (%) 97 Oxygen Delivery Method Room Air Intake Visit Reasons: 6 month follow up Intake Note: Pt is here today for her 6 mo. Allergies No Known Allergies Allergy (Verified 01/19/24 11:45) Medication List - Last Reconciled 01/19/24 by Bridgette Larson MD amlodipine 2.5 mg (1/2 x 5 mg) PO DAILY buspirone 7.5 mg PO TID cholecalciferol (vitamin D3) 50 mcg PO DAILY lisinopril-hydrochlorothiazide 20-12.5 mg 1 tab PO DAILY magnesium 250 mg PO DAILY omega-3 fatty acids 500 mg PO DAILY Tobacco use date assessed: 01/19/24 Dental Screening Dental Screen Date: 01/19/24 Did you have a dental visit in the last 12 months?: No Did you have a dental problem in the last 6 months where you did not have access to dental care?: No Was dental information given to patient?: Patient declined HPI 6 month follow up HPI Details 58-year-old lady with hypertension, hype rlipidemia, and impaired fasting glucose, here today for follow-up. Patient admits to being off her diet this past several months, and has not really been exercising regularly. Has gained a lot of weight since last visit and recent fasting labs showed elevated triglycerides, total cholesterol and LDL cholesterol with low HDL cholesterol [facility] Medical History (Updated 01/19/24 @ 11:56 by Bridgette Larson MD) Mixed dyslipidemia Postmenopausal bleeding History of COVID-19 Esophagitis determined by endoscopy Left shoulder pain Essential hypertension Anxiety and depression Numbness and tingling in left hand Cervicalgia COVID-19 virus infection Hypertension, uncontrolled Impaired fasting glucose Dyslipidemia Surgical History Hx of colonoscopy S/P endometrial ablation Hx of cholecystectomy History of tubal ligation Family History Father Diabetes mellitus HTN (hypertension) Cerebrovascular disease Stroke Mother HTN (hypertension) Depression Mental health disorder Sister Mental health disorder Social History Household Members: Significant Other and Children Housing: House Alcohol intake: current Alcohol intake frequency: a few times a week Patient Tobacco Use Status: Former Tobacco user Years Smoked: 3 yrs e-Cigarette/Vaping Use: Never Used Second Hand Smoke Exposure: No service: No Current occupational status: employed Current occupation: [employer] Sexual orientation: Straight/Heterosexual Gender identity: Female Cognitive needs: No Hearing needs: No Vision needs: Yes Female Reproductive History Menstrual Age of Menarche: 13 Questionnaire PHQ-9 Over the last 2 weeks, how often have you been bothered by any of the following problems? 1. Little interest or pleasure in doing things: not at all 2. Feeling down, depressed, or hopeless: not at all 3. Trouble falling or staying asleep, or sleeping too much: several days 4. Feeling tired or having little energy: several days 5. Poor appetite or overeating: not at all 6. Feeling bad about yourself - or that you are a failure or have let yourself or your family down: not at all 7. Trouble concentrating on things, such as reading the newspaper or watching television: not at all 8. Moving or speaking so slowly that other people could have noticed. Or the opposite - being so fidgety or restless that you have been moving around a lot more than usual: not at all 9. Thoughts that you would be better off or of hurting yourself in some way: not at all Total score: 2 Depression Screening Interpretation: Negative Depression Screening Done: Yes 77941 - PHQ-9 Billing: Yes Source: Developed by Drs. Kei Jackson, Lizette Read, Michael Grande and colleagues, with an educational aura from [employer]. Thrive Questionnaire Date Thrive assessed: 01/19/24 I am a: Patient What is your living situation today?: I choose not to answer this question Within the past 12 months, did the food you bought not last and you didn't have the money to get more?: I choose not to answer this question Within the past 12 months, did you worry whether your food would run out before you got money to buy more?: I choose not to answer this question Do you have trouble paying for medicines?: No Do you have trouble getting transportation to medical appointments?: No Do you have trouble paying your heating and electricity bill?: I choose not to answer this question Do you have trouble taking care of your child, family member or friend?: No Do you have trouble with day-to-day activities such as bathing, preparing meals, shopping, managing finances, etc.?: No Are you currently unemployed and looking for a job?: No Are you interested in more education?: No Please select the resources that you would like help with: None Currently or been in a relationship where the following occur: I choose not to answer THRIVE Score: 0 AUDIT C Alcohol Use Questionnaire (AUDIT-C) 1. How often do you have a drink containing alcohol?: 2-3 times a week 2. How many drinks containing alcohol do you have on a typical day when you are drinking?: 1 or 2 3. How often do you have six or more drinks on one occasion?: Never Total Score: 3 GRZEGORZ-7 AMB Questionnaire GRZEGORZ-7 Date GRZEGORZ - 7 assessed: 01/19/24 Feeling nervous, anxious, or on edge: 1 = Several days Not being able to stop or control worryin = Several days Worrying too much about different things: 1 = Several days Trouble relaxin = Not at all Being so restless that it is hard to sit still: 1 = Several days Becoming easily annoyed or irritable: 0 = Not at all Feeling afraid as if something awful might happen: 0 = Not at all Total GRZEGORZ-7 score (0-4 normal; 5-9 mild; 10-14 moderate; 15-21 severe): 4 Source: Developed by Drs. Kei Jackson, Lizette Read, Michael Grande and colleagues, with an educational aura from [employer]. Review of Systems Const Reports as per HPI, Denies body aches, Denies excessive sweating, Denies fatigue, Denies fever(s), Denies headache(s), Denies lethargy and Denies weakness Eyes Details: Goes to [facility] for her routine eye exam, currently up-to-date Denies change in vision ENT Denies dizziness, Denies otalgia, Denies headache(s), Denies nasal congestion, Denies nasal discharge, Denies post nasal drip and Denies sore throat Card Denies chest pain, Denies chest pain with activity, Denies lightheadedness, Denies palpitations and Denies dyspnea Resp Denies cough, Denies dyspnea and Denies wheezing GI Denies abdominal pain, Denies melena, Denies change in bowel habits, Denies change in stool character, Denies dyspepsia and Denies heartburn Musc Reports no additional complaints Neuro Denies dizziness, Denies headache(s) and Denies weakness Psych Reports no additional complaints Endo Denies excessive sweating, Denies fatigue, Denies polydipsia, Denies polyuria and Denies palpitations Mp/Lymph Denies easy bleeding and Denies easy bruising Aller/Immun Denies seasonal rhinorrhea and Denies wheezing Physical exam (Primary Care) Vital Signs: Last Vital Signs Pulse 66 01/19/24 11:29 BP 136/90 H 01/19/24 11:29 Pulse Ox 97 01/19/24 11:29 Oxygen Delivery Method Room Air 01/19/24 11:29 BMI result Body Mass Index 32.1 Tobacco/Smoking Status: Tobacco use Status Tobacco use date assessed 01/19/24 01/19/24 11:33 Patient Tobacco Use Status Former Tobacco user 01/19/24 11:33 e-Cigarette/Vaping Use Never Used 01/19/24 11:33 PHQ-9: PHQ-9 Score PHQ-9: Total score 2 01/19/24 11:48 Depression Screening Interpretation: Negative Thrive Assessment: Date of Thrive Assessment Date Thrive assessed 01/19/24 01/19/24 11:33 Currently or been in a relationship where the following occur: I choose not to a nswer Const General: no acute distress and alert Orientation/consciousness: patient oriented x3 HENMT Head: Yes normocephalic Ears: external ears normal and EAC's normal General nose exam: Normal external nose present Face and sinus: Yes face symmetric Mouth: Normal oral and palatal mucosa present and moist mucous membranes Eyes General: appearance normal, both eyes and all related structures Eyelids: Yes eyelids normal Conjunctivae: conjunctivae normal Sclerae: sclerae normal Pupils: Equal, round and reactive pupils present EOM: EOMs intact bilaterally Neck Neck: Yes full ROM, Yes no lymphadenopathy and Yes supple Thyroid: Thyroid normal Resp Effort & Inspection: normal respiratory effort and able to speak in complete sentences Auscultation: clear to auscultation bilaterally Cardio Rate: regular rate Rhythm: regular rhythm Heart sounds: S1 normal heart sound present and S2 normal heart sound present Peripheral pulses: Peripheral pulses 2+ throughout GI Inspection: Yes normal to inspection Palpation (GI): Soft to palpation, nontender, no guarding and no masses Auscultation: normal bowel sounds Back/Spine/Pelvis Back: No back tenderness Skin General skin exam: no rashes or lesions noted Hair: normal Nails: normal Neuro General: patient oriented x3, gait normal, moves all extremities, Normal light touch and pain sensation, no focal motor deficits and CN's II-XI intact bilaterally Cranial nerves: Yes Equal, round and reactive pupils present Cognition (Neuro): normal cognition Gait exam (Neuro): Normal gait present Motor exam (neuro): 5/5 motor strength present throughout Extrem General: Yes normal to inspection, Yes full ROM, Yes no joint enlargement, Yes no pedal edema and Yes normal gait Psych Appearance: grossly normal and well kempt Mental Status: mental status grossly normal Speech and movement: Normal speech and movement present Affect: normal affect Attitude: cooperative Thought process: Normal thought process present Thought content: Normal thought content present Results Reviewed Results Reviewed: Name: Priya Ferrer Age/Sex: 58/F : 1965 Unit#: [id number] Attend Dr: Bridgette Larson MD Re01/13/24 Status: DEP REF [facility] Disch: SPEC : [id number] PRITI: 01/13/24 STATUS: COMP REQ : [id number] RECD: 01/13/[address]: Bridgette Larson MD COMP: 01/13/24 ENTERED: 01/13/24-[address]: ORDERED: Lipid Panel Test Result Flag Reference Triglyceride 260 H <150 mg/dL Desirable Triglyceride: less than 150 mg/dL Borderline High Triglyceride 150-199 mg/dL High Triglyceride: 200-499 mg/dL Very High Triglyceride: greater than or equal to 5OO mg/dL Cholesterol 239 H <200 mg/dL Desirable Cholesterol: less than 200 mg/dL Borderline High Cholesterol: 200-239 mg/dL High Cholesterol: greater than 239 mg/dL LDL Calculated 150 H <100 mg/dL Desirable LDL: less than 100 mg/dL Near Optimal/Above Optimal LDL: 110-129 mg/dL Borderline High LDL: 130-159 mg/dL High LDL: 160-189 mg/dL Very High LDL: greater than or equal to 190 mg/dL HDL 37 L >40 mg/dL Desirable HDL: greater than 40 mg/dL Note: This HDL assay may give artificially low results in patients with liver disease. Assessment and Plan Assessment & Plan (1) Essential hypertension: Code(s): I10 - Essential (primary) hypertension Plan: Blood pressure not at goal. Reinforced importance of following a low-salt diet and get regular exercise to lose weight. Will continue on lisinopril-HCTZ 20- 12.5 mg taken once a day and amlodipine 2.5 mg daily (2) Mixed dyslipidemia: Code(s): E78.2 - Mixed hyperlipidemia Plan: Recent fasting labs showed elevated lipid levels with low HDL cholesterol. Stressed importance of going back on her diet, take [place] 3 fatty acid supplements daily, get regular exercise, will recheck lipid levels again in 3 months Orders: Orders Basic Metabolic Panel Fasting 04/17/24 E78.2 - Mixed hyperlipidemia, I10 - Essential (primary) hypertension, R73.01 - Impaired fasting glucose Alanine Aminotransferase 04/17/24 E78.2 - Mixed hyperlipidemia, I10 - Essential (primary) hypertension, R73.01 - Impaired fasting glucose Aspartate Amino Transferase 04/17/24 E78.2 - Mixed hyperlipidemia, I10 - Essential (primary) hypertension, R73.01 - Impaired fasting glucose Vitamin D 25-OH Total 04/17/24 E78.2 - Mixed hyperlipidemia, I10 - Essential (primary) hypertension, R73.01 - Impaired fasting glucose Lipid Panel 04/17/24 E78.2 - Mixed hyperlipidemia, I10 - Essential (primary) hypertension, R73.01 - Impaired fasting glucose Hemoglobin A1c 04/17/24 E78.2 - Mixed hyperlipidemia, I10 - Essential (primary) hypertension, R73.01 - Impaired fasting glucose Coding Level of Care Code Est Pt Level 4 (94014) Complex EM visit Add On G2211 Diagnoses Essential hypertension I10 Mixed dyslipidemia E78.2
== END 2024-01-19 12:22 | disposition home or self-care (01) ==
PROVIDERS: PCP Internal Medicine; Visit Provider Internal Medicine
DX: I10 Essential (primary) hypertension (principal); E78.2 Mixed hyperlipidemia
CPT/HCPCS: 99214; G2211

== ENCOUNTER 2024-08-11 08:28 | Outpatient (REF) | payer OTHER, SELFPAY ==
[2024-08-11 10:34] LABS: Estimated Average Glucose 128 mg/dL; Hemoglobin A1C 152.5217 umol/L; Hemoglobin A1c % 6.1 % (<6.0)
[2024-08-11 10:52] LABS: Alanine Aminotransferase 26 U/L (0-31); Anion Gap 16 (12-20); Aspartate Amino Transferase 21 U/L (5-31); Blood Urea Nitrogen 18 mg/dL (9-16); Calcium 9.7 mg/dL (8.4-10.2); Carbon Dioxide 22 mmol/L (22-29); Chloride 110 mmol/L (96-108); Cholesterol 251 mg/dL (<200); Estimated Glomerular Filt Rate > 60; Glucose Fasting 124 mg/dL (60-99); HDL Cholesterol 37 mg/dL (>40); LDL Cholesterol Calculated 152 mg/dL (<100); Sodium 144 mmol/L (135-145); Triglycerides 311 mg/dL (<150); Vitamin D 25-OH Total 122.8 ng/mL (>30)
== END 2024-08-11 08:29 | disposition home or self-care (01) ==
LOC: HO.HMGCLDS 08:28
PROVIDERS: PCP Internal Medicine; Visit Provider Internal Medicine
DX: E78.2 Mixed hyperlipidemia (principal); R73.01 Impaired fasting glucose; I10 Essential (primary) hypertension
CPT/HCPCS: 36415; 80048; 80061; 82306; 83036; 84450; 84460

== ENCOUNTER 2024-08-15 13:30 | Outpatient (AMB) | payer OTHER, SELFPAY ==
--- NOTE | 2024-08-15 13:34 | MHC.PC.OV ---
Vital Signs 08/15/24 13:36 Height 5 ft 4 in Weight 190 lb BMI 32.6 BP 110/80 Blood Pressure Location Rt brachial Position Sitting Respiration 15 Pulse 67 Pulse Source Pulse Oximeter Temp 97.9 F Temp Source Oral Pulse Oximetry (%) 98 Oxygen Delivery Method Room Air Intake Visit Reasons: Physical exam Intake Note: Pt is here today for her PE: Last mammogram 10/30/23, papsmear 06/11/21, colonoscopy 03/17/19 Allergies No Known Allergies Allergy (Verified 08/15/24 13:56) Medication List - Last Reconciled 08/15/24 by Bridgette Larson MD amlodipine 2.5 mg (1/2 x 5 mg) PO DAILY buspirone 7.5 mg PO TID cholecalciferol (vitamin D3) 50 mcg PO DAILY lisinopril-hydrochlorothiazide 20-12.5 mg 1 tab PO DAILY magnesium 250 mg PO DAILY omega-3 fatty acids 500 mg PO DAILY Tobacco use date assessed: 08/15/24 Dental Screening Dental Screen Date: 08/15/24 Did you have a dental visit in the last 12 months?: No Did you have a dental problem in the last 6 months where you did not have access to dental care?: No Was dental information given to patient?: No HPI HPI Comments History of Present Illness Details 59-year-old lady with history hypertension, and anxiety depression, prediabetes, and mixed dyslipidemia, here today for physical exam. She is currently up-to-date with her breast cancer screening with last mammogram done 10/30/2023 showing benign findings. She sees Dr. Perez for her routine Pap and pelvic exam and is currently being followed for a thickened endometrium, last Pap smear was done 06/11/2021 with benign findings. Her last colonoscopy was done 03/17/2019, which was normal, repeat due again in 2028. She has been feeling well, but has been gaining weight, which she admits is due to her lack of exercise and non adherence with recommended diet. FORMERLY [facility], [facility] Medical History Mixed dyslipidemia Postmenopausal bleeding History of COVID-19 Esophagitis determined by endoscopy Essential hypertension Anxiety and depression Numbness and tingling in left hand Cervicalgia COVID-19 virus infection Hypertension, uncontrolled Impaired fasting glucose Dyslipidemia Surgical History Hx of colonoscopy S/P endometrial ablation Hx of cholecystectomy History of tubal ligation Family History Father Diabetes mellitus HTN (hypertension) Cerebrovascular disease Stroke Mother HTN (hypertension) Depression Mental health disorder Sister Mental health disorder Social History Household Members: Significant Other and Children Housing: House Alcohol intake: current Alcohol intake frequency: a few times a week Patient Tobacco Use Status: Former Tobacco user Years Smoked: 3 yrs e-Cigarette/Vaping Use: Never Used Second Hand Smoke Exposure: No service: No Current occupational status: employed 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 1. Little interest or pleasure in doing things: not at all 2. Feeling down, depressed, or hopeless: not at all 3. Trouble falling or staying asleep, or sleeping too much: several days 4. Feeling tired or having little energy: several days 5. Poor appetite or overeating: several days 6. Feeling bad about yourself - or that you are a failure or have let yourself or your family down: not at all 7. Trouble concentrating on things, such as reading the newspaper or watching television: several days 8. Moving or speaking so slowly that other people could have noticed. Or the opposite - being so fidgety or restless that you have been moving around a lot more than usual: not at all 9. Thoughts that you would be better off or of hurting yourself in some way: not at all Total score: 4 Depression Screening Interpretation: Positive Depression Screening Follow-up: Existing condition and In treatment Depression Screening Done: Yes 10482 - PHQ-9 Billing: Yes Source: Developed by Drs. Kei Jackson, Lizette Read, Michael Grande and colleagues, with an educational aura from [employer]. Thrive Questionnaire Date Thrive assessed: 08/15/24 I am a: Patient What is your living situation today?: I choose not to answer this question Within the past 12 months, did the food you bought not last and you didn't have the money to get more?: I choose not to answer this question Within the past 12 months, did you worry whether your food would run out before you got money to buy more?: I choose not to answer this question Do you have trouble paying for medicines?: I choose not to answer this question Do you have trouble getting transportation to medical appointments?: No Do you have trouble paying your heating and electricity bill?: I choose not to answer this question Do you have trouble taking care of your child, family member or friend?: I choose not to answer this question Do you have trouble with day-to-day activities such as bathing, preparing meals, shopping, managing finances, etc.?: I choose not to answer this question Are you currently unemployed and looking for a job?: I choose not to answer this question Are you interested in more education?: I choose not to answer this question Please select the resources that you would like help with: None Currently or been in a relationship where the following occur: I choose not to answer THRIVE Score: 0 AUDIT C Alcohol Use Questionnaire (AUDIT-C) 1. How often do you have a drink containing alcohol?: 2-3 times a week 2. How many drinks containing alcohol do you have on a typical day when you are drinking?: 1 or 2 3. How often do you have six or more drinks on one occasion?: Never Total Score: 3 GRZEGORZ-7 AMB Questionnaire GRZEGORZ-7 Date GRZEGORZ - 7 assessed: 08/15/24 Feeling nervous, anxious, or on edge: 1 = Several days Not being able to stop or control worryin = Not at all Worrying too much about different things: 1 = Several days Trouble relaxin = Not at all Being so restless that it is hard to sit still: 0 = Not at all Becoming easily annoyed or irritable: 1 = Several days Feeling afraid as if something awful might happen: 0 = Not at all Total GRZEGORZ-7 score (0-4 normal; 5-9 mild; 10-14 moderate; 15-21 severe): 3 Source: Developed by Lizette Berrios, Michael Grande and colleagues, with an educational aura from [employer]. GRZEGORZ-7 Assessment Billing GRZEGORZ-7 Assessment Tool: GRZEGORZ-7 Assessment 57618 Review of Systems Const Denies body aches, Denies excessive sweating, Denies fatigue, Denies fever(s), Denies headache(s), Denies lethargy and Denies weakness Eyes Details: Goes to [facility] for her routine eye exam, currently up-to-date Denies change in vision ENT Denies dizziness, Denies headache(s) and Denies nasal congestion Card Denies chest pain, Denies chest pain with activity, Denies lightheadedness, Denies palpitations and Denies dyspnea Resp Denies cough, Denies dyspnea and Denies wheezing GI Denies abdominal pain, Denies melena, Denies change in bowel habits, Denies change in stool character, Denies dyspepsia and Denies heartburn Reports no additional complaints Musc Reports no additional complaints Skin/Breast Denies breast pain, Denies breast mass and Denies rash Neuro Denies dizziness, Denies headache(s) and Denies weakness Psych Reports no additional complaints Endo Denies excessive sweating, Denies fatigue, Denies polydipsia, Denies polyuria and Denies palpitations Mp/Lymph Denies easy bleeding and Denies easy bruising Aller/Immun Denies seasonal rhinorrhea and Denies wheezing Physical exam (Primary Care) Vital Signs: Last Vital Signs Temp 97.9 F 08/15/24 13:36 Pulse 67 08/15/24 13:36 Resp 15 08/15/24 13:36 BP 110/80 08/15/24 13:36 Pulse Ox 98 08/15/24 13:36 Oxygen Delivery Method Room Air 08/15/24 13:36 BMI result Body Mass Index 32.6 Tobacco/Smoking Status: Tobacco use Status Tobacco use date assessed 08/15/24 08/15/24 13:43 Patient Tobacco Use Status Former Tobacco user 08/15/24 13:43 e-Cigarette/Vaping Use Never Used 08/15/24 13:43 PHQ-9: PHQ-9 Score PHQ-9: Total score 4 08/15/24 14:22 Depression Screening Interpretation: Positive Depression Screening Follow-up: Existing condition and In treatment Thrive Assessment: Date of Thrive Assessment Date Thrive assessed 08/15/24 08/15/24 13:43 Currently or been in a relationship where the following occur: I choose not to answer Const General: no acute distress and alert Orientation/consciousness: patient oriented x3 [facility] Head: Yes normocephalic Ears: external ears normal and EAC's normal General nose exam: Normal external nose present Face and sinus: Yes face symmetric Mouth: Normal oral and palatal mucosa present and moist mucous membranes Eyes General: appearance normal, both eyes and all related structures Pupils: Equal, round and reactive pupils present EOM: EOMs intact bilaterally Neck Neck: Yes full ROM, Yes no lymphadenopathy and Yes supple Thyroid: Thyroid normal Chest Chest palpation & inspection: normal inspection of the chest Breast/axilla inspection: normal inspection of the breasts Breast/axilla palpation: normal palpation of the breasts Resp Effort & Inspection: normal respiratory effort and able to speak in complete sentences Auscultation: clear to auscultation bilaterally Cardio Rate: regular rate Rhythm: regular rhythm Heart sounds: S1 normal heart sound present and S2 normal heart sound present Peripheral pulses: Peripheral pulses 2+ throughout GI Inspection: Yes normal to inspection Palpation (GI): Soft to palpation, nontender, no guarding and no masses Auscultation: normal bowel sounds General: Yes deferred (Currently followed by [facility]) Back/Spine/Pelvis Back: No back tenderness Skin General skin exam: no rashes or lesions noted Hair: normal Nails: normal Neuro General: patient oriented x3, gait normal, moves all extremities, Normal light touch and pain sensation, no focal motor deficits and CN's II-XI intact bilaterally Cranial nerves: Yes Equal, round and reactive pupils present Cognition (Neuro): normal cognition Gait exam (Neuro): Normal gait present Motor exam (neuro): 5/5 motor strength present throughout Extrem General: Yes normal to inspection, Yes full ROM, Yes no joint enlargement, Yes no pedal edema and Yes normal gait Psych Appearance: grossly normal and well kempt Mental Status: mental status grossly normal Speech and movement: Normal speech and movement present Affect: normal affect Attitude: cooperative Thought process: Normal thought process present Thought content: Normal thought content present Results Reviewed Results Reviewed: Laboratory Tests 08/11/24 08:31 Estimat Average Glucose 128 Hemoglobin A1c % 6.1 H Name: Priya Ferrer Age/Sex: 59/F : 1965 Unit#: [id number] Attend Dr: Bridgette Larson MD Re08/11/24 Status: DEP REF Location: [facility] Disch: SPEC : [id number] PRITI: 08/11/24 STATUS: COMP REQ : [id number] RECD: 08/11/[address]: Bridgette Larson MD COMP: 08/11/24 ENTERED: 08/11/24 [facility] DR: ORDERED: Met Prof Fast, AST, ALT, Lipid Panel, Vitamin D 25-OH Test Result Flag Reference Sodium 144 135-145 mmol/L Potassium 4.0 3.3-5.1 mmol/L CL 110 H 96-108 mmol/L CO2 22 22-29 mmol/L Gap 16 12-20 BUN 18 H 9-16 mg/dL Creat 0.81 0.5-1.4 mg/dL eGFR > 60 Chronic Kidney Disease: Estimated GFR < 60 mL/min/1.73m2 Severe Kidney Disease: Estimated GFR < 15 mL/min/1.73m2 FBS 124 H 60-99 mg/dL A fasting glucose from 100-125 mg/dl is considered impaired (pre-diabetes). CA 9.7 8.4-10.2 mg/dL AST (GOT) 21 5-31 U/L ALT (GPT) 26 0-31 U/L Triglyceride 311 H <150 mg/dL Desirable Triglyceride: less than 150 mg/dL Borderline High Triglyceride 150-199 mg/dL High Triglyceride: 200-499 mg/dL Very High Triglyceride: greater than or equal to 5OO mg/dL Cholesterol 251 H <200 mg/dL Desirable Cholesterol: less than 200 mg/dL Borderline High Cholesterol: 200-239 mg/dL High Cholesterol: greater than 239 mg/dL LDL Calculated 152 H <100 mg/dL Desirable LDL: less than 100 mg/dL Near Optimal/Above Optimal LDL: 110-129 mg/dL Borderline High LDL: 130-159 mg/dL High LDL: 160-189 mg/dL Very High LDL: greater than or equal to 190 mg/dL HDL 37 L >40 mg/dL Desirable HDL: greater than 40 mg/dL Note: This HDL assay may give artificially low results in patients with liver disease. Vitamin D 25-OH 122.8 >30 ng/mL Health Based Reference Values* < 20 ng/mL Deficient 20-30 ng/mL Insufficient > 30 ng/mL Sufficient Coding Level of Care Code Est Pt Prev Care 40-64y(77686) Diagnoses Annual visit for general adult medical examination with abnormal findings Z00. Essential hypertension I10 Anxiety and depression F41.9; F32.A Impaired fasting glucose R73.01 Mixed dyslipidemia E78.2 Additional Codes GRZEGORZ-7 Assessment Billing - GRZEGORZ-7 Assessment Tool: GRZEGORZ-7 Assessment 41369 ([id number]) PHQ-9 - 02383 - PHQ-9 Billing: Yes ([id number]) Assessment & Plan Assessment & Plan (1) Annual visit for general adult medical examination with abnormal findings: Code(s): Z00. - Encounter for general adult medical examination with abnormal findings Plan: Reviewed recent fasting lab results with patient. Continue with regular dental cleaning every 6 months and regular eye exams, at least every 2 years. Take adequate calcium in diet and vitamin-D 3 at 2000 IU per cap once a day, in addition to weight-bearing exercises to help maintain good muscle tone and weight control. Instructed to do self-breast exam, and continue with yearly mammogram, goes to [facility] for her routine Pap and pelvic exam. Up-to-date with her screening colonoscopy. Reminded to get her yearly flu vaccine, does not want to get COVID booster , due for her tetanus diphtheria booster, patient states that she has had 2 shingles vaccine already given at [facility] (2) Essential hypertension: Code(s): I10 - Essential (primary) hypertension Category: Medical Plan: blood pressure stable and controlled on present treatment, will continue on Amlodipine 2.5 mg daily and lisinopril-HCTZ 20-12.5 mg once a day (3) Anxiety and depression: Code(s): F41.9 - Anxiety disorder, unspecified; F32.A - Depression, unspecified Category: Medical Plan: Continue buspirone 7.5 mg per tablet 3 times a day (4) Impaired fasting glucose: Code(s): R73.01 - Impaired fasting glucose Category: Medical Plan: Your previous fasting blood sugars were elevated above 100 mg/dL. Impaired glucose metabolism increases the risk for developing diabetes mellitus type 2, as well as heart attack and stroke later on. Lifestyle changes that promotes weight loss, healthy eating habits, and regular exercise are important, and can prevent the progression to diabetes (5) Mixed dyslipidemia: Code(s): E78.2 - Mixed hyperlipidemia Category: Medical Plan: Advised to adhere to recommended diet and get regular exercise at least 30 minutes of cardio exercise 3 to 4 times a week. Latest fasting labs showed elevated triglycerides and LDL cholesterol , and low good cholesterol as compared to last check.
[2024-08-15 13:36] VITALS: BP 110/80; PULSE 67; RESP 15; TEMP 36.6; O2SAT 98; BMI 32.6
--- OUTSIDE RECORDS SUMMARY | 2024-08-15 15:16 | XMS_ITS | Clinical Summary ---
[facility] [address] [place] [address] Care Team Providers Care Doorkeeper Name Role Phone Unavailable Primary Care Provider Unavailabl e Social History Tobacco Use Types Packs/Day Years Used Date Smoking Tobacco: Never Assessed Comments Unknown Sex and Gender Information Value Date Recorded Sex Assigned at Not on file Legal Sex Female 8:54 PM EST Gender Identity Not on file Sexual Orientation Not on file Plan of Treatment Health Maintenance Due Date Last Done Comments Breast Cancer Screening 1965 DTaP,Tdap,and Td Vaccines (1 - Tdap) 1986 Hepatitis B Vaccines (1 of 3 - 19+ 3-dose series) 1986 Cervical Cancer Screening: P ap Smear 1988 Pneumococcal Vaccine: 50+ Ye ars (1 of 1 - PCV) 2017 Zoster Vaccines (1 of 2) 2017 Colorectal Cancer Screening: Colonoscopy 06/12/2023 Depression Screening 06/12/2023 HIV Screening 06/12/2023 Hepatitis C Screening 06/12/2023 Social Influencers of Health Screening 06/12/2023 COVID-19 Vaccine (1 - 2023-2 5 season) 2024 Influenza Vaccine (#1) 2024 HIB Vaccines Aged Out No longer eligi ble based on patient's age to complete this topic HPV Vaccines Aged Out No longer eligi ble based on patient's age to complete this topic Hepatitis A Vaccines Aged Out No long er eligible based on patient's age to complete this topic IPV Vaccines Aged Out No longer eligi ble based on patient's age to complete this topic MMR Vaccines Aged Out No longer eligi ble based on patient's age to complete this topic Meningococcal ACWY Vaccine Aged Out N o longer eligible based on patient's age to complete this topic Meningococcal B Vacine Aged Out No lo nger eligible based on patient's age to complete this topic Pneumococcal Vaccine: Pediat rics (0 to 5 Years) and At-Risk Patients (6 to 64 Years) Aged Out No longer eligible b ased on patient's age to complete this topic RSV Immunization Patients Un carmen 20 months Aged Out No longer eligible b ased on patient's age to complete this topic Varicella Vaccines Aged Out No longer eligible based on patient's age to complete this topic
== END 2024-08-15 14:55 | disposition home or self-care (01) ==
PROVIDERS: PCP Internal Medicine; Visit Provider Internal Medicine
DX: Z00.01 Encounter for general adult medical examination with abnormal findings (principal); I10 Essential (primary) hypertension; F41.9 Anxiety disorder, unspecified; F32.A Depression, unspecified; R73.01 Impaired fasting glucose; E78.2 Mixed hyperlipidemia

== ENCOUNTER → 2024-08-15 13:30 | Outpatient (BNVA) | payer OTHER, SELFPAY | PROVIDERS: PCP Internal Medicine; Visit Provider Internal Medicine | DX: Z00.01 Encounter for general adult medical examination with abnormal findings (principal); I10 Essential (primary) hypertension; F41.9 Anxiety disorder, unspecified; F32.A Depression, unspecified; E78.2 Mixed hyperlipidemia; R73.01 Impaired fasting glucose | CPT/HCPCS: 96127; 99396 ==

== ENCOUNTER 2024-11-04 10:10 | Outpatient (REF) | payer OTHER, SELFPAY ==
--- NOTE | ~2024-11-04 | MM_ITS ---
EXAMINATION: MM SCREENING DIGITAL BREAST TOMOSYNTHESIS, BILATERAL CLINICAL INFORMATION: Screening. Asymptomatic. COMPARISON: Mammography: Comparison is made with available priors TECHNIQUE: Digital breast mammography with tomosynthesis is performed in both the craniocaudal and mediolateral oblique views along with computer-aided detection (CAD). FINDINGS: The breasts are heterogeneously dense, which may obscure small masses (ACR BI-RADS breast composition Category c). There are no significant masses, abnormal calcifications, or other abnormalities. MM/MM tomosynthesis screening BI IMPRESSION: No mammographic evidence of malignancy. ASSESSMENT: BI-RADS BI-RADS 1 - Negative RECOMMENDATION: Routine annual mammography screening. 1 year F/U This examination should not preclude the clinical evaluation of a suspicious palpable abnormality. This patient's information was entered into a reminder system with a target due date for their next mammogram. Electronically signed by: Gabriela Faulkner DO 11/10/2024 12:41 PM EDT
--- OUTSIDE RECORDS SUMMARY | 2024-11-04 10:26 | XMS_ITS | Clinical Summary ---
[facility] Organization [facility] [address] [place] [address] Care Team Providers Care Mop Man Name Role Phone Unavailable Primary Care Provider [...] - 2023-2 5 season) 2024 Influenza Vaccine (Season Ended) 2025 HIB Vaccines Aged Out No longer eligi [...] age to complete this topic Meningococcal B Vaccine Aged Out No l onger eligible based on patient's age to complete [...]
== END 2024-11-04 10:11 | disposition home or self-care (01) ==
LOC: HO.MAMMO 10:10
PROVIDERS: Visit Provider Internal Medicine
DX: Z12.31 Encounter for screening mammogram for malignant neoplasm of breast (principal)
CPT/HCPCS: 77063; 77067

== ENCOUNTER → 2024-11-04 10:15 | Outpatient (BNV) | payer OTHER, SELFPAY | PROVIDERS: Visit Provider Internal Medicine | DX: Z12.31 Encounter for screening mammogram for malignant neoplasm of breast (principal) | CPT/HCPCS: 77063; 77067 ==

== ENCOUNTER 2024-12-28 13:55 | Outpatient (REF) | payer OTHER, SELFPAY ==
--- NOTE | ~2024-12-28 | US_ITS ---
EXAMINATION: US PELVIS CLINICAL INFORMATION: Ovarian cysts. COMPARISON: December 14, 2023. TECHNIQUE: Ultrasound of the pelvis is performed using both transabdominal and transvaginal transducers along with Doppler. Transvaginal imaging is performed due to inadequate visualization transabdominally. FINDINGS: Uterus: The uterus is anteversion flexion and measures 8 x 4 x 5 cm. Volume: 103 cc The double wall endometrial thickness is 4 mm. The uterus is smooth in contour and has normal myometrial echogenicity. No visible fibroid. Adnexa: Both ovaries are visualized. There is normal color flow to the adnexa. There is no ovarian torsion. There is no pelvic ascites or fluid collection. Right ovary measures 2 x 1 x 2 cm. Volume: 3 cc. Punctate calcifications. Left ovary measures 3 x 1 x 2 cm. 5 cc. 1.2 cm anechoic lesion without septations or flow on color Doppler interrogation. US/US pelvic and transvaginal IMPRESSION: 1.2 cm simple cyst, left ovary. No ovarian torsion. No gross uterine fibroid. Normal endometrial stripe. Electronically signed by: Sam Ferro MD 12/28/2024 03:15 PM EDT
--- OUTSIDE RECORDS SUMMARY | 2024-12-28 14:17 | XMS_ITS | Clinical Summary ---
[facility] Address [address] [place] [address] Care Team Providers Care Official Court Interpreter Name Role Phone Unavailable Primary Care Provider [...] 2) 2017 Colorectal Cancer Screening: Colonoscopy 06/12/2023 HIV Screening 06/12/2023 Hepatitis C Screening 06/12/2023 Social Influencers of Health Screening 06/12/2023 COVID-19 Vaccine (1 - 2023-2 5 season) 2024 Depression Screening 05/18/2024 Influenza Vaccine (#1) 2025 HIB Vaccines Aged Out No longer [...]
== END 2024-12-28 13:56 | disposition home or self-care (01) ==
LOC: HO.US 13:55
PROVIDERS: Visit Provider Obstetrics & Gynecology
DX: N83.209 Unspecified ovarian cyst, unspecified side (principal)
CPT/HCPCS: 76830; 76856

== ENCOUNTER → 2024-12-28 13:56 | Outpatient (BNV) | payer OTHER, SELFPAY | PROVIDERS: Visit Provider Radiology Diagnostic Radiology | DX: N83.202 Unspecified ovarian cyst, left side (principal) | CPT/HCPCS: 76830; 76856 ==

== ENCOUNTER 2025-01-04 08:05 | Outpatient (AMB) | payer OTHER, SELFPAY ==
--- NOTE | 2025-01-04 08:10 | A.OFFVIS_ITS ---
Vital Signs 01/04/25 08:12 Height 5 ft 4 in Weight 193 lb BMI 33.1 BP 122/86 Intake Visit Reasons: [employer]IDENT[employer] annual exam/US follow up Accompanied by: Self / Same As Patient Allergies No Known Allergies Allergy (Verified 01/04/25 08:13) HPI Comments Details: Presenting for annual exam. No complaints. Last Pap/HPV was negative in 06/08 Last Mammogram was BI-RADS 1 in 11/09 Last Colonoscopy was 7 years ago, the recommendation was to repeat at age of 62 The patient had an ultrasound for follow-up hydrosalpinx and right simple 1.8 cm ovarian cyst in 12/08, 01/09 repeat pelvic ultrasound showed the following: Uterus: The uterus is anteversion flexion and measures 8 x 4 x 5 cm. Volume: 103 cc The double wall endometrial thickness is 4 mm. The uterus is smooth in contour and has normal myometrial echogenicity. No visible fibroid. Adnexa: Both ovaries are visualized. There is normal color flow to the adnexa. There is no ovarian torsion. There is no pelvic ascites or fluid collection. Right ovary measures 2 x 1 x 2 cm. Volume: 3 cc. Punctate calcifications. Left ovary measures 3 x 1 x 2 cm. 5 cc. 1.2 cm anechoic lesion without septations or flow on color Doppler interrogation. [facility] Medical History Mixed dyslipidemia Postmenopausal bleeding History of COVID-19 Esophagitis determined by endoscopy Essential hypertension Anxiety and depression Numbness and tingling in left hand Cervicalgia COVID-19 virus infection Hypertension, uncontrolled Impaired fasting glucose Dyslipidemia Surgical History Hx of colonoscopy S/P endometrial ablation Hx of cholecystectomy History of tubal ligation Family History Father Diabetes mellitus HTN (hypertension) Cerebrovascular disease Stroke Mother HTN (hypertension) Depression Mental health disorder Sister Mental health disorder Social History (Updated 01/04/25 @ 08:15 by Stefany Fenton MA) Household Members: Significant Other and Children Housing: House Alcohol intake: current Alcohol intake frequency: a few times a week Comment: socially Patient Tobacco Use Status: Former Tobacco user Years Smoked: 3 yrs e-Cigarette/Vaping Use: Never Used Second Hand Smoke Exposure: No service: No Current occupational status: employed 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 Sexually active: Yes Sexual orientation: Straight/Heterosexual Gender identity: Female Cognitive needs: No Hearing needs: No Vision needs: Yes Female Reproductive History Menstrual Age of Menarche: 13 Total pregnancies: 5 Full term: 3 Ab induced: 1 Ab spontaneous: 1 History of abnormal mammogram: No Review of Systems Const All systems reviewed & are unremarkable except as noted in HPI and below Card Reports as per HPI Resp Reports as per HPI GI Reports as per HPI and Reports no additional complaints Reports as per HPI Physical Exam Vital Signs: Last Vital Signs BP 122/86 01/04/25 08:12 BMI result Body Mass Index 33.1 Const General: cooperative, healthy appearing and comfortable Chest Chest palpation & inspection: normal inspection of the chest and normal palpation of entire chest wall Breast/axilla inspection: normal inspection of the breasts and normal inspection of the axillae Breast/axilla palpation: normal palpation of the breasts, normal palpation of the axillae and no axillary lymphadenopathy Resp Effort & Inspection: normal respiratory effort Auscultation: clear to auscultation bilaterally Percussion: percussion normal Cardio Palpation: normal PMI Rate: regular rate Rhythm: regular rhythm Heart sounds: no murmurs and no rubs Peripheral pulses: Peripheral pulses 2+ throughout GI Inspection: Yes normal to inspection Palpation (GI): Soft to palpation, nontender, no guarding, not rigid and No hepatosplenomegaly present Percussion: Yes normal to percussion Auscultation: normal bowel sounds Rectal Exam - Female: deferred General: Yes bladder normal to palpation External Female Exam: No lesion Speculum Exam - Vagina: normal appearance of the vagina, normal palpation, normal vaginal discharge and not erythematous Speculum Exam - Cervix: normal appearance of the cervix and normal palpation Bimanual exam- vagina & uterus: normal bimanual exam, normal palpation, uterine size normal, bladder normal to palpation, consistency normal and normal palpation Bimanual Exam- Adnexa, other: normal adnexae, no masses and no tenderness Assessment & Plan Assessment & Plan (1) Ovarian cyst: Code(s): N83.209 - Unspecified ovarian cyst, unspecified side Category: Medical Plan: Discussed with the patient the ovarian cyst by ultrasound. Discussed with the patient the Ultrasound findings, the main limitation of transvaginal ultrasonography alone as a diagnostic tool to distinguish benign from malignant masses relates to its lack of specificity and low positive predictive value for cancer. The differential diagnosis discussed with the patient includes the following but not limited to: benign and malignant gynecological and non- gynecological causes. Serum tumor marker CA 125 wnl Discussed with the patient that CA 125 is a protein associated with epithelial ovarian malignancies, but also frequently expressed at lower levels by nonmalignant tissue. Normal CA 125 levels can be found in ovarian cancer patients. Elevation of CA 125 levels may occur in nonmalignant gynecologic conditions, and in non-gynecologic cancers, It is most useful in postmenopausal women and in identifying non mucinous epithelial cancer. The CA 125 level is elevated in 80% of patients with epithelial ovarian cancer but in only 50% of patients with stage I disease. The overall sensitivity of CA 125 testing in distinguishing benign from malignant adnexal masses reportedly ranges from 61% to 90%; specificity ranges from 71% to 93%, positive predictive value ranges from 35% to 91%, and negative predictive value ranges from 67% to 90%. Discussed with the patient options of treatment , in case CA 125 is not elevated, including laparoscopy ovarian salpingo- oophorectomy vs. expectant management with repeat US in repeating pelvic US in 6 months from previous US. If the ovarian cyst is persistent larger and / or changes in Ultrasound appearance & became complex looking, or higher CA 125 will refer to gynecologic Oncology. All pros, cons, risks and benefits of each approach were discussed with the patient including but not limited to a delay in the diagnosis and treatment of ovarian cancer affecting the prognosis; The patient decided to go ahead with expectant management. All questions were answered & the patient verbalized understanding and agreed with the plan (2) Well woman exam: Code(s): Z01.419 - Encounter for gynecological examination (general) (routine) without abnormal findings Category: Medical Plan: Co testing not indicated. Counseled the patient about the recommended dietary allowance of 1200 mg of Calcium & 600 IU of vitamin D. Instructions given the patient to schedule next screening Mammogram in 11/10. The patient was instructed to perform monthly self-breast exams and schedule annual exam in a year. All questions answered and the patient verbalized understanding. Orders: Orders US pelvic and transvaginal 6 Months N83.209 - Unspecified ovarian cyst, unspecified side CA-125 Today N83.209 - Unspecified ovarian cyst, unspecified side Coding Level of Care Code Est Pt Level 3 (28396) Est Pt Prev Care 40-64y(38219) Diagnoses Ovarian cyst N83.209 Well woman exam Z01.419
[2025-01-04 08:12] VITALS: BP 122/86; BMI 33.1
== END 2025-01-04 08:45 | disposition home or self-care (01) ==
LOC: HO.HWS 08:05
PROVIDERS: Visit Provider Obstetrics & Gynecology
DX: Z01.419 Encounter for gynecological examination (general) (routine) without abnormal findings (principal); N83.201 Unspecified ovarian cyst, right side; N83.202 Unspecified ovarian cyst, left side
CPT/HCPCS: 99213; 99396; 99459

== ENCOUNTER → 2025-01-04 08:05 | Outpatient (BNVA) | payer OTHER, SELFPAY | PROVIDERS: Visit Provider Obstetrics & Gynecology | DX: Z01.419 Encounter for gynecological examination (general) (routine) without abnormal findings (principal); N83.201 Unspecified ovarian cyst, right side | CPT/HCPCS: 99212; 99396 ==

== ENCOUNTER 2025-03-14 07:53 | Outpatient (REF) | payer OTHER, SELFPAY ==
[2025-03-14 10:18] LABS: Uric Acid 10.2 mg/dL (2.4-5.7)
[2025-03-15 10:18] LABS: CA-125 16 U/mL (<35)
== END 2025-03-14 07:54 | disposition home or self-care (01) ==
LOC: HO.HMGCLDS 07:53
PROVIDERS: Obstetrics & Gynecology; PCP Internal Medicine; Visit Provider Physician Assistant Medical
DX: M79.671 Pain in right foot (principal); N83.209 Unspecified ovarian cyst, unspecified side
CPT/HCPCS: 36415; 84550; 86304; 99212

== ENCOUNTER 2025-03-14 07:53 | Outpatient (AMB) | payer OTHER, SELFPAY ==
--- OUTSIDE RECORDS SUMMARY | 2025-03-14 07:57 | XMS_ITS | Clinical Summary ---
Author Organization [facility] [employer] [facility] ity Address [address] [place] [address] Care Team Providers Care Inspector Precision Name Role Phone Unavailable Primary Care Provider [...] Last Done Comments Breast Cancer Screening 1967 Colorectal Cancer Screening: Colonoscopy 1967 DTaP,Tdap,and Td Vaccines (1 - Tdap) 1986 Hepatitis B Vaccines (1 of 3 - 19+ 3-dose series) 1986 Cervical Cancer Screening: P ap Smear 1988 Pneumococcal Vaccine: 50+ Ye ars (1 of 1 - PCV) 2017 Zoster Vaccines (1 of 2) 2017 HIV Screening 06/12/2023 Hepatitis C Screening 06/12/2023 Social Influencers of Health Screening 06/12/2023 Depression Screening 05/18/2024 COVID-19 Vaccine (1 - 2023-2 5 season) 2025 Influenza Vaccine (#1) 2025 RSV Immunization Adult Patie nts (1 - 1-dose 75+ series) 2042 HIB Vaccines Aged Out No longer eligi [...]
[2025-03-14 07:59] VITALS: BP 140/98; PULSE 77; TEMP 36.4; O2SAT 99; BMI 32.6
--- NOTE | 2025-03-14 07:59 | AM.OFFWIN_ITS ---
Intake Vital Signs 03/14/25 07:59 03/14/25 08:38 Height 5 ft 4 in Weight 190 lb BMI 32.6 BP 140/98 H 142/100 H Blood Pressure Location Lt brachial Lt brachial Position Sitting Sitting Pulse 77 Pulse Source Pulse Oximeter Temp 97.6 F Temp Source Oral Pulse Oximetry (%) 99 Oxygen Delivery Method Room Air Intake Visit Reasons: ep right foot swollen and red pain since thursday Intake Note: Patient presents with c/o right great toe pain & swelling x3 days Patient Tobacco Use Status: Former Tobacco user Allergies No Known Allergies Allergy (Verified 03/14/25 08:02) Do you need a note to return to daycare/school/sports/work: No HPI HPI Comments History of Present Illness Details History of Present Illness - The patient is a 59-year-old female pr esenting with acute pain and swelling in the right foot. - The swelling and pain began on , with no previous similar episodes reported. - The patient has a family history of go ut and consumes purine-rich foods, including shrimp, red meat, and alcohol. - The pain was severe, described as burn ing, and worsened throughout the day, affecting mobility. - She has pain with weight bearing and t ouching the foot. - Aleve PM was taken for pain relief, wh ich provided some relief and improved sleep. - Blood pressure was elevated at 140/98 mmHg in the office today. - She denies fever, chills, trauma, fall , ankle pain, calf pain, numbness, tingling, CP, or SOB. Physical Exam General: Cooperative, healthy appearing, comfortable, no acute distress and well developed Orientation: Patient oriented x3 Limitations: No limitations Respiratory: Normal respiratory effort and able to speak in complete sentences. Clear to auscultation bilaterally Cardiovascular: Regular rate and rhythm. Normal S1 and S2. Pulses are 2+ on the LE. Skin: No rashes or lesions noted. Erythema noted on the right foot from the great toe to the 3rd. Neuro: Patient oriented x3. Sensation is intact. Extremities: Swelling noted to the right foot at the first MTP. FROM of the digits on the right foot. TTP of the right first MTP and metatarsal. Strength is 5/5 on the LE. Negative Homans. FROM of the right ankle. Ambulates with steady gait. Patient was informed and verbally consented to the use of an ambient scribe for clinic note documentation during this visit. [facility] Medical History Mixed dyslipidemia Postmenopausal bleeding History of COVID-19 Esophagitis determined by endoscopy Essential hypertension Anxiety and depression Numbness and tingling in left hand Cervicalgia COVID-19 virus infection Hypertension, uncontrolled Impaired fasting glucose Dyslipidemia Surgical History Hx of colonoscopy S/P endometrial ablation Hx of cholecystectomy History of tubal ligation Family History Father Diabetes mellitus HTN (hypertension) Cerebrovascular disease Stroke Mother HTN (hypertension) Depression Mental health disorder Sister Mental health disorder Social History (Updated 01/04/25 @ 08:15 by Stefany Fenton MA) Household Members: Significant Other and Children Housing: House Alcohol intake: current Alcohol intake frequency: a few times a week Comment: socially Patient Tobacco Use Status: Former Tobacco user Years Smoked: 3 yrs e-Cigarette/Vaping Use: Never Used Second Hand Smoke Exposure: No service: No Current occupational status: employed 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 Sexual orientation: Straight/Heterosexual Gender identity: Female Cognitive needs: No Hearing needs: No Vision needs: Yes Female Reproductive History Menstrual Age of Menarche: 13 Review of Systems Const All systems reviewed & are unremarkable except as noted in HPI and below Physical Exam Vital Signs: Last Vital Signs Temp 97.6 F 03/14/25 07:59 Pulse 77 03/14/25 07:59 BP 142/100 H 03/14/25 08:38 Pulse Ox 99 03/14/25 07:59 Oxygen Delivery Method Room Air 03/14/25 07:59 BMI result Body Mass Index 32.6 Assessment & Plan Assessment & Plan (1) Right foot pain: Code(s): M79.671 - Pain in right foot Plan Most likely due to gout plan - rest, ice and elevation of the foot - will order uric acid - prednisone taper as directed - indomethacin as needed for pain - Monitor blood pressure at home due to elevated readings likely secondary to pain. - Recheck blood pressure after pain management to assess for improvement. - follow up with PCP Orders: Orders Uric Acid Today M79.673 - Pain in unspecified foot Medications: New prednisone Day 1&2 take 4 tablets, day 3&4 take 3 tablets, day 5&6 take 2 tablets, days 7-9 take 1 tablet. 10 mg PO DIRECTED 21 ea 0RF indomethacin administer with food or milk 50 mg PO bid 14 caps 0RF Coding Level of Care Code Est Pt Level 3 (34659) Diagnoses Right foot pain M79.671
[2025-03-14 08:38] VITALS: BP 142/100
== END 2025-03-14 08:39 | disposition home or self-care (01) ==
PROVIDERS: PCP Internal Medicine; Visit Provider Physician Assistant Medical
DX: M79.671 Pain in right foot (principal)

== ENCOUNTER 2025-03-23 15:17 | Outpatient (AMB) | payer OTHER, SELFPAY ==
[2025-03-23 15:56] VITALS: BP 140/90; PULSE 75; RESP 16; TEMP 36.7; O2SAT 97; BMI 32.1
--- NOTE | 2025-03-23 15:56 | MHC.PC.OV ---
Vital Signs 03/23/25 15:56 Height 5 ft 4 in Weight 187 lb BMI 32.1 BP 140/90 H Blood Pressure Location Lt brachial Position Sitting Respiration 16 Pulse 75 Pulse Source Pulse Oximeter Temp 98.1 F Temp Source Oral Pulse Oximetry (%) 97 Oxygen Delivery Method Room Air Intake Visit Reasons: Rt foot swollen, walk in visit 03/14/25 Intake Note: Pt is here today c/o Rt foot swollen f/u walk-in visit 03/14/25 Edge Stripper Required: No Allergies No Known Allergies Allergy (Verified 03/23/25 16:26) Medication List - Last Reconciled 03/23/25 by Bridgette Larson MD cholecalciferol (vitamin D3) 50 mcg PO DAILY indomethacin 50 mg PO bid lisinopril-hydrochlorothiazide 20-12.5 mg 1 tab PO DAILY prednisone 10 mg PO DIRECTED Tobacco use date assessed: 03/23/25 Dental Screening Dental Screen Date: 03/23/25 Did you have a dental visit in the last 12 months?: Yes Did you have a dental problem in the last 6 months where you did not have access to dental care?: No Was dental information given to patient?: Patient has dentist HPI Rt foot swollen, walk in visit 03/14/25 HPI Details The patient is a 59-year-old female presenting for follow-up and management of a recent gout attack. The patient experienced a recent gout flare with foot swelling, and her uric acid level was 10. She was treated with prednisone and indomethacin , and reports her foot is now feeling a little better. She has a significant family history of gout, with all seven of her brothers affected. Her diet includes steak, and she recently consumed shellfish, which may have precipitated the attack. Regarding her history of hypertension, her blood pressure was noted to be a little high, which is thought to be related to prednisone use. She stopped taking hydrochlorothiazide due to experiencing leg cramps and concern that it can cause gout. She also self-discontinued amlodipine approximately 2-3 months ago after experiencing what she describes as a popped blood vessel in her eye. She currently takes lisinopril. The patient reports a 5-pound weight loss over the past week due to decreased food intake. She also has a history of back pain, which is exacerbated by lifting at her job, following a surgery in 2020. [facility] Medical History (Updated 04/01/25 @ 23:51 by Bridgette Larson MD) Gout Mixed dyslipidemia Postmenopausal bleeding History of COVID-19 Esophagitis determined by endoscopy Essential hypertension Anxiety and depression Numbness and tingling in left hand Cervicalgia COVID-19 virus infection Hypertension, uncontrolled Impaired fasting glucose Dyslipidemia Surgical History Hx of colonoscopy S/P endometrial ablation Hx of cholecystectomy History of tubal ligation Family History Father Diabetes mellitus HTN (hypertension) Cerebrovascular disease Stroke Mother HTN (hypertension) Depression Mental health disorder Sister Mental health disorder Social History Household Members: Significant Other and Children Housing: House Alcohol intake: current Alcohol intake frequency: a few times a week Comment: socially Patient Tobacco Use Status: Former Tobacco user Years Smoked: 3 yrs e-Cigarette/Vaping Use: Never Used Second Hand Smoke Exposure: No service: No Current occupational status: employed Current occupation: [employer] Sexual orientation: Straight/Heterosexual Gender identity: Female Cognitive needs: No Hearing needs: No Vision needs: Yes Female Reproductive History Menstrual Age of Menarche: 13 Questionnaire PHQ-9 Over the last 2 weeks, how often have you been bothered by any of the following problems? 1. Little interest or pleasure in doing things: not at all 2. Feeling down, depressed, or hopeless: not at all 3. Trouble falling or staying asleep, or sleeping too much: several days 4. Feeling tired or having little energy: several days 5. Poor appetite or overeating: several days 6. Feeling bad about yourself - or that you are a failure or have let yourself or your family down: not at all 7. Trouble concentrating on things, such as reading the newspaper or watching television: several days 8. Moving or speaking so slowly that other people could have noticed. Or the opposite - being so fidgety or restless that you have been moving around a lot more than usual: not at all 9. Thoughts that you would be better off or of hurting yourself in some way: not at all Total score: 4 Depression Screening Interpretation: Positive Depression Screening Follow-up: Existing condition and In treatment Depression Screening Done: Yes Source: Developed by Drs. Kei Jackson, Lizette Read, Michael Grande and colleagues, with an educational aura from [employer]. Thrive Questionnaire Date Thrive assessed: 08/15/24 I am a: Patient What is your living situation today?: I choose not to answer this question Within the past 12 months, did the food you bought not last and you didn't have the money to get more?: I choose not to answer this question Within the past 12 months, did you worry whether your food would run out before you got money to buy more?: I choose not to answer this question Do you have trouble paying for medicines?: I choose not to answer this question Do you have trouble getting transportation to medical appointments?: No Do you have trouble paying your heating and electricity bill?: I choose not to answer this question Do you have trouble taking care of your child, family member or friend?: I choose not to answer this question Do you have trouble with day-to-day activities such as bathing, preparing meals, shopping, managing finances, etc.?: I choose not to answer this question Are you currently unemployed and looking for a job?: I choose not to answer this question Are you interested in more education?: I choose not to answer this question Please select the resources that you would like help with: None Currently or been in a relationship where the following occur: I choose not to answer THRIVE Score: 0 AUDIT C Alcohol Use Questionnaire (AUDIT-C) 1. How often do you have a drink containing alcohol?: 2-3 times a week 2. How many drinks containing alcohol do you have on a typical day when you are drinking?: 1 or 2 3. How often do you have six or more drinks on one occasion?: Never Total Score: 3 GRZEGORZ-7 AMB Questionnaire GRZEGORZ-7 Date GRZEGORZ - 7 assessed: 08/15/24 Feeling nervous, anxious, or on edge: 1 = Several days Not being able to stop or control worryin = Not at all Worrying too much about different things: 1 = Several days Trouble relaxin = Not at all Being so restless that it is hard to sit still: 0 = Not at all Becoming easily annoyed or irritable: 1 = Several days Feeling afraid as if something awful might happen: 0 = Not at all Total GRZEGORZ-7 score (0-4 normal; 5-9 mild; 10-14 moderate; 15-21 severe): 3 Source: Developed by Drs. Kei Jackson, Lizette Read, Michael Grande and colleagues, with an educational aura from [employer]. Review of Systems Const Denies fatigue, Denies fever(s) and Denies headache(s) Eyes Details: Goes to [facility] for her routine eye exam, currently up-to-date ENT Denies dizziness, Denies headache(s) and Denies nasal congestion Card Denies chest pain, Denies chest pain with activity, Denies lightheadedness, Denies palpitations and Denies dyspnea Resp Denies cough and Denies dyspnea GI Denies abdominal pain, Denies melena, Denies change in bowel habits and Denies change in stool character Reports no additional complaints Musc Reports no additional complaints Skin/Breast Denies breast pain, Denies breast mass and Denies rash Neuro Denies dizziness and Denies headache(s) Psych Reports no additional complaints Endo Denies fatigue, Denies polydipsia, Denies polyuria and Denies palpitations Physical exam (Primary Care) Vital Signs: Last Vital Signs Temp 98.1 F 03/23/25 15:56 Pulse 75 03/23/25 15:56 Resp 16 03/23/25 15:56 BP 140/90 H 03/23/25 15:56 Pulse Ox 97 03/23/25 15:56 Oxygen Delivery Method Room Air 03/23/25 15:56 BMI result Body Mass Index 32.1 Tobacco/Smoking Status: Tobacco use Status Tobacco use date assessed 03/23/25 03/23/25 16:00 Patient Tobacco Use Status Former Tobacco user 03/23/25 16:00 e-Cigarette/Vaping Use Never Used 03/23/25 16:00 PHQ-9: PHQ-9 Score PHQ-9: Total score 4 03/23/25 16:30 Depression Screening Interpretation: Positive Depression Screening Follow-up: Existing condition and In treatment Thrive Assessment: Date of Thrive Assessment Date Thrive assessed 08/15/24 03/23/25 16:00 Currently or been in a relationship where the following occur: I choose not to answer Const General: no acute distress and alert Orientation/consciousness: patient oriented x3 HENIA Head: Yes normocephalic Ears: external ears normal General nose exam: Normal external nose present Face and sinus: Yes face symmetric Mouth: moist mucous membranes Eyes General: appearance normal, both eyes and all related structures Neck Neck: Yes full ROM, Yes no lymphadenopathy and Yes supple Resp Effort & Inspection: normal respiratory effort and able to speak in complete sentences Auscultation: clear to auscultation bilaterally Cardio Rate: regular rate Rhythm: regular rhythm Heart sounds: S1 normal heart sound present and S2 normal heart sound present GI Inspection: Yes normal to inspection Palpation (GI): Soft to palpation, nontender, no guarding and no masses Auscultation: normal bowel sounds Back/Spine/Pelvis Back: No back tenderness Skin General skin exam: no rashes or lesions noted Hair: normal Nails: normal Neuro General: patient oriented x3, gait normal, moves all extremities, Normal light touch and pain sensation, no focal motor deficits and CN's II-XI intact bilaterally Cognition (Neuro): normal cognition Gait exam (Neuro): Normal gait present Motor exam (neuro): 5/5 motor strength present throughout Extrem General: Yes normal to inspection, Yes full ROM, Yes no joint enlargement, Yes no pedal edema and Yes normal gait Coding Level of Care Code Est Pt Level 4 (27994) Complex EM visit Add On G2211 Diagnoses Acute gout involving toe of right foot, unspecified cause M10.9 Gout site: toe Gout etiology: unspecified cause Chronicity: acute Laterality: right Essential hypertension I10 Assessment & Plan Assessment & Plan (1) Gout: Code(s): M10.9 - Gout, unspecified Category: Medical Qualifiers: Gout site: toe Gout etiology: unspecified cause Chronicity: acute Laterality: right Qualified Code(s): M10.9 - Gout, unspecified (2) Essential hypertension: Code(s): I10 - Essential (primary) hypertension Category: Medical Plan 1. Gout, chronic The patient is recovering from an acute gout flare, with a history of a uric acid level of 10. The flare has been improving with prednisone and indomethacin. Given the high uric acid and recurrent potential, chronic management is indicated to prevent future attacks and complications like kidney stones. After discussing options, the plan is to initiate allopurinol 100 mg daily, starting with a low dose. A refill for indomethacin will be provided for as-needed use during acute flares. The patient was counseled that indomethacin may cause stomach upset and was advised to take it with Pepcid (famotidine) if needed. 2. Hypertension The patient's blood pressure is currently elevated, which is likely a side effect of recent prednisone use. She has previously discontinued hydrochlorothiazide due to concerns about it causing gout and leg cramps, and amlodipine due to a perceived ocular side effect. She remains on lisinopril. The plan is to continue current management and re-evaluate her blood pressure and medication regimen after she has completed the prednisone course. The patient expressed a desire to improve her diet for gout and hypertension management. A referral will be made to a dietitian, Jory. Handouts on a low-uric acid diet will be provided. Additionally, meal delivery services such as [employer] and [employer] were discussed as potential tools for weight management and healthy eating. The patient will follow up in August for a physical. Blood work, including a uric acid level, will be ordered at that time to assess the effectiveness of allopurinol. The patient declined a flu shot at this visit. Patient was informed and verbally consented to the use of an ambient scribe for clinic note documentation during this visit. Orders: Orders Hemoglobin A1c 08/19/25 M10.9 - Gout, unspecified, E78.2 - Mixed hyperlipidemia, R73.01 - Impaired fasting glucose, I10 - Essential (primary) hypertension Lipid Panel 08/19/25 M10.9 - Gout, unspecified, E78.2 - Mixed hyperlipidemia, R73.01 - Impaired fasting glucose, I10 - Essential (primary) hypertension Uric Acid 08/19/25 M10.9 - Gout, unspecified, E78.2 - Mixed hyperlipidemia, R73.01 - Impaired fasting glucose, I10 - Essential (primary) hypertension Vitamin D 25-OH Total 08/19/25 M10.9 - Gout, unspecified, E78.2 - Mixed hyperlipidemia, R73.01 - Impaired fasting glucose, I10 - Essential (primary) hypertension Basic Metabolic Panel Fasting 08/19/25 M10.9 - Gout, unspecified, E78.2 - Mixed hyperlipidemia, R73.01 - Impaired fasting glucose, I10 - Essential (primary) hypertension Aspartate Amino Transferase 08/19/25 M10.9 - Gout, unspecified, E78.2 - Mixed hyperlipidemia, R73.01 - Impaired fasting glucose, I10 - Essential (primary) hypertension Alanine Aminotransferase 08/19/25 M10.9 - Gout, unspecified, E78.2 - Mixed hyperlipidemia, R73.01 - Impaired fasting glucose, I10 - Essential (primary) hypertension Medications: New allopurinol 100 mg PO DAILY 30 tabs 5RF Refilled indomethacin administer with food or milk 50 mg PO bid 14 caps 0RF
--- OUTSIDE RECORDS SUMMARY | 2025-03-23 18:15 | XMS_ITS | Clinical Summary ---
Author Organization [facility] [employer] [facility] ity Address [address] [place] [id number] Care Team Providers Care Commercial Litigation Attorney Name Role Phone Unavailable Primary Care Provider [...]
== END 2025-03-23 16:33 | disposition home or self-care (01) ==
LOC: HO.HMCC 15:18
PROVIDERS: PCP Internal Medicine; Visit Provider Internal Medicine
DX: M10.9 Gout, unspecified (principal); I10 Essential (primary) hypertension

== ENCOUNTER → 2025-03-23 15:17 | Outpatient (BNVA) | payer OTHER, SELFPAY | PROVIDERS: PCP Internal Medicine; Visit Provider Internal Medicine | DX: I10 Essential (primary) hypertension (principal); M10.9 Gout, unspecified; E78.2 Mixed hyperlipidemia; R73.01 Impaired fasting glucose | CPT/HCPCS: 99212 ==